=== PATIENT | male | born 1945 | race Caucasian/White ===

== ENCOUNTER 2017-09-19 14:06 | Inpatient (IN) | payer MEDICARE ==
[2017-09-19 14:38] LABS: Base Excess-Venous -2.6 mmol/L (0 (+/- 2.5)); CO2 Tension (PvCO2) 26.7 mmHg (41.0-51.0); Hemoglobin - Calc 9.9 g/dL (12.0-18.0); O2 Tension (PvO2) 39.8 mmHg (35.0-45.0); Potassium 3.8 mmol/L (3.4-4.7); T. Carbon Dioxide 20.8 mmol/L (1.0-85.0); pH (Venous) 7.482 (7.35-7.45); vO2 Saturation-calc 79.9 % (94-98)
--- NOTE | 2017-09-19 14:41 | CT ---
CT BRAIN WITHOUT CONTRAST: Date: 09/19/17 HISTORY: Altered mental status. Hypotension. COMPARISON: None. FINDINGS: There is moderate atrophy. Moderate deep white matter microvascular ischemic changes. There is extensive fluid-filling of the bilateral maxillary, ethmoid, and frontal sinuses. There is extensive osteitis of the paranasal sinuses. IMPRESSION: 1. No acute infarction or hemorrhage. 2. No midline shift or mass effect. 3. Extensive microvascular ischemic changes, as well as moderate atrophy. 4. Extensive paranasal sinusitis. POS: OFF
--- NOTE | 2017-09-19 14:44 | RAD ---
CHEST ONE VIEW: HISTORY: Altered mental status. Hypotension. Fall. COMPARISON: None. FINDINGS: There appear to be left perihilar and upper lobe air space opacities. Old right-sided rib fractures. No pneumothorax. The cardiac silhouette and mediastinal contours are similar. IMPRESSION: 1. Extensive perihilar opacities, worse on the left, as well as upper lobe opacities. This may refl ect edema, acute respiratory distress syndrome, or infection. Followup recommended. 2. Mild height loss of the upper lumbar vertebrae. POS: OFF
[2017-09-19 14:45] LABS: Hemoglobin 11.4 g/dL (14.0-18.0); Mean Corpuscular HGB CONC 32.9 g/dL (32.0-36.0); Mean Corpuscular Hemoglobin 34.8 pg (27.0-31.0); Red Blood Cell (RBC) Count 3.27 mill/uL (4.70-6.10); White Blood Cell (WBC) Count 3.8 thou/uL (4.8-10.8)
--- NOTE | 2017-09-19 14:45 | CT ---
CT CERVICAL SPINE WITH CORONAL AND SAGITTAL REFORMATIONS: Date: 09/19/17 HISTORY: Altered mental status. Level I trauma. Fall. FINDINGS: No fracture is seen. No degenerative changes are present. There is minimal retrolisthesis of C4 over C5. There is incomplete visualization of patchy consolidation in the left upper lung. Discussed over the telephone with ER physician, Dr. Haley, at 1440 hours. CODE CR. POS: DEEJAY
--- NOTE | 2017-09-19 14:46 | RAD ---
AP VIEW PELVIS: INDICATIONS: A 72-year-old male status post fall with possible hip dislocation. FINDINGS: There is a comminuted right hip intertrochanteric fracture with prominent varus malalignment. There is diffuse osteopenia. There is a nondisplaced right inferior pubic ramus fracture. There is a poss ible nondisplaced right pubic root fracture. There is diffuse osteopenia. There is an instrumented healed left hip intertrochanteric fracture. There are scattered vascular calcifications. Portions o f the proximal femur are excluded from the field of view. IMPRESSION: 1. Comminuted, angulated right intertrochanteric hip fracture. 2. Nondisplaced right pubic root and right inferior pubic ramus fracture. 3. Healed, instrumented left intertrochanteric hip fracture. POS: CRISTOBAL
[2017-09-19 14:50] LABS: ALT (SGPT) 151 U/L (8-55); AST (SGOT) 241 U/L (5-34); Albumin 2.5 g/dL (3.4-4.8); Alcohol Less than 10 mg/dL (Less than 10); Alkaline Phosphatase 146 U/L (40-150); Anion Gap 26 mmol/L (10-20); BUN (Urea Nitrogen) 99 mg/dL (8.4-25.7); Bilirubin, Total 5.1 mg/dL (0.2-1.2); CK (CPK) 154 U/L (30-200); Calc. Creatinine Clearance 0 mL/min (70-130); Calcium 8.5 mg/dL (7.8-10.44); Carbon Dioxide 18 mmol/L (23-31); Chloride 111 mmol/L (98-107); Estimated GFR-MDRD 23; Globulin 3.1 g/dL (2.4-3.5); Glucose 104 mg/dL (83-110); Magnesium 2.6 mg/dL (1.6-2.6); Potassium 4.1 mmol/L (3.5-5.1); Protein, Total 5.6 g/dL (5.8-8.1); Sodium 151 mmol/L (136-145)
[2017-09-19 14:54] LABS: CKMB 4.4 ng/mL (0-6.6); Troponin I Less than 0.010 ng/mL (< 0.028)
[2017-09-19] MEDS ORDERED: Piperacillin/Tazobactam 4.5 GM VIAL ONE (14:59)
[2017-09-19] MEDS ORDERED: Vancomycin HCl 2.5 GM, Admixture Fee 1 EACH in Sodium Chloride 0.9% 500 ML IVPB SCH (15:00)
[2017-09-19] MEDS ORDERED: Dextrose 5% in Water 1,000 ML IV PRN (15:00)
[2017-09-19] MEDS ORDERED: Dextrose 50% Abboject 50 ML SYRINGE SLOW IVP PRN (15:00)
[2017-09-19] MEDS ORDERED: Ondansetron HCl/PF 4 MG/2 ML Vial IVP PRN (15:00)
[2017-09-19] MEDS ORDERED: Morphine 4 MG/ML VIAL SLOW IVP PRN ×2 (15:00→17:23)
[2017-09-19 15:14] LABS: Mean Platelet Volume 9.8 fL (7.4-10.4); Platelet Count 82 thou/uL (130-400)
[2017-09-19 15:15] LABS: Anisocytosis SLIGHT = 6-15 cells (100X) (0-5/hpf); Band 28 % (5-11); Lymphocytes 4 % (21-51); MDiff Complete? YES; Metamyelocyte 1 % (0-0); Monocytes 3 % (0-10); Neutrophil 64 % (42-75); PLT Morphology Comment Appears Decreased
[2017-09-19 15:26] LABS: INR-International Normal Ratio 1.3; PTT 34.6 SEC (22.9-36.1); Prothrombin Time 16.6 SEC (12.0-14.7)
--- NOTE | 2017-09-19 15:29 | RAD ---
PORTABLE RIGHT KNEE TWO VIEWS: History: Right knee pain, trauma. FINDINGS/IMPRESSION: No acute fracture or dislocation is seen. Vascular calcifications are present. POS: DEEJAY
[2017-09-19 15:41] LABS: Bilirubin Large (Negative); Blood, Urine Negative (Negative); Clarity CLOUDY (Clear); Glucose, Urine (Dipstick) Negative (Negative); Leukocyte Small (Negative); Nitrite Positive (Negative); Protein, Urine (Dipstick) Trace mg/dL (Neg-Trace)
[2017-09-19 15:44] LABS: Bacteria/HPF None Seen HPF (None Seen); RBC/HPF 0-3 HPF (0-3)
[2017-09-19 15:52] LABS: Pathc Cast-AUWi Flag 8.86 (0-2.49)
[2017-09-19 16:00] LABS: Crystals/HPF None Seen HPF (Negative); Hyaline Casts/LPF 0-3 HYALINE CAST LPF (0-3 Hyaline); Manual Microscopic Reviewed? No Path Casts Seen; Renal Epithelial None Seen HPF (0-3); Transitional Epithelial 0-3 HPF (0-3)
[2017-09-19 16:19] LABS: Actual Bicarbonate (HCO3a) 21.5 mEq/L (22-26); Base Excess (BEa) -4.8 mEq/L (0 (+/-) 2.5); CO2 Tension 46.1 mmHg (35.0-45.0); Hemoglobin (Hb) 8.2 g/dL (14.0-18.0); O2 Tension (PaO2) 57.9 mmHg (80.0-100.0); pH, Arterial 7.29 (7.35-7.45)
[2017-09-19 16:20] LABS: ALV-art Gradient 597.475 (0-20); Analyzer IN Cardio ER; Calcium, Ionized 1.1 mmol/L (1.12-1.30); Puncture Site RRA
[2017-09-19] MEDS ORDERED: Succinylcholine Chloride 20 MG/ML 10 ml SYRINGE FS ONE (16:25)
[2017-09-19] MEDS ORDERED: fentaNYL Citrate/PF 2,000 MCG in Sodium Chloride 0.9% 60 ML IV SCH (16:30)
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
[2017-09-19] MEDS ORDERED: Norepinephrine 4 MG/4 ML VIAL ONE (16:46)
[2017-09-19] MEDS ORDERED: Norepinephrine 8 MG in Sodium Chloride 0.9% 250 ML 250 ML IVPB PRN (16:52)
[2017-09-19 17:00] LABS: Actual Bicarbonate (HCO3a) 22.3 mEq/L (22-26); CO2 Tension 61.4 mmHg (35.0-45.0); Hemoglobin (Hb) 8.5 g/dL (14.0-18.0); O2 Tension (PaO2) 90.8 mmHg (80.0-100.0); pH, Arterial 7.18 (7.35-7.45)
[2017-09-19 17:01] LABS: Analyzer IN Cardio ER; Puncture Site LRA
[2017-09-19] MEDS ORDERED: Ventilator Sedation Protocol 1 EACH FS ONE (17:22)
[2017-09-19] MEDS ORDERED: Fentanyl BOLUS 250 ML IVPB PRN (17:23)
[2017-09-19] MEDS ORDERED: Propofol 1,000 MG/100 ML VIAL IV PRN (17:23)
[2017-09-19] MEDS ORDERED: Propofol BOLUS 1,000 MG/100 ML VIAL IV PRN (17:23)
[2017-09-19] MEDS ORDERED: Lorazepam 2 MG/ML VIAL SLOW IVP PRN (17:23)
[2017-09-19 18:07] LABS: Lactic Acid 1.2 mmol/L (0.5-2.2)
--- NOTE | 2017-09-19 18:11 | RAD ---
CHEST ONE VIEW 09/19/17 HISTORY: Status post central line placement and intubation. COMPARISON: 09/19/17 at 2:19 p.m. FINDINGS: Interval placement of endotracheal tube proximal to the clavicles. Right sided central venous cathete r terminates in the expected region of the superior vena cava. Nasogastric tube is identified. Distal tip is in the left upper quadrant. Chronic changes and hyperinflation in the lung parenchyma are dem onstrated. No obvious consolidation or masses. No obvious pneumothorax. There appears to be a left pe rihilar opacity. Evaluation is incomplete. IMPRESSION: 1. Lines and tubes as above. 2. Left perihilar opacity incompletely evaluated. POS: PPP
--- NOTE | 2017-09-19 18:28 | RAD ---
TWO VIEWS RIGHT HIP 09/19/17 HISTORY: Trauma. Pain. COMPARISON: None. FINDINGS: There is a comminuted, angulated intertrochanteric fracture. Vascular calcifications are noted. IMPRESSION: Right intertrochanteric fracture. POS: PPP
--- NOTE | 2017-09-19 18:59 | RAD ---
FRONTAL AND LATERAL IMAGING RIGHT FEMUR 09/19/17 COMPARISON: None. HISTORY: Deformity, trauma, pain. FINDINGS: Extensive atherosclerotic calcification is seen in the medial aspect of the right thigh. There is an obliquely oriented displaced fracture involving the proximal right femur, better assessed on right hi p and pelvis radiographs. The lateral examination demonstrates good distal fracture fragment to demon strate a posterior displacement of approximately 1.3 cm in mild posterior angulation. No additional f racture identified. IMPRESSION: Obliquely oriented displaced right femoral neck fracture, better assessed on right hip radiographs. POS: DEEJAY
[2017-09-19] MEDS ORDERED: Calcium Chloride 1 GM/10 ML Abboject SYRINGE IVP SCH (19:45)
[2017-09-19] MEDS: Sodium Bicarbonate 150 MEQ, Admixture Fee 1 EACH in Dextrose 5% in Water 1,000 ML IV SCH (19:57)
[2017-09-19] MEDS ORDERED: Hydrocortisone Sod Succ/PF 100 mg/2 ml Vial IVP SCH (20:00)
[2017-09-19] MEDS: Oxazepam 10 MG CAP PO SCH (20:52)
[2017-09-19] MEDS: Piperacillin/Tazobactam 2.25 GM in Sodium Chloride 0.9% 100 ML IVPB SCH (20:52)
[2017-09-19] MEDS ORDERED: Sodium Bicarbonate 150 MEQ in Dextrose 5% in Water 1,000 ML IV SCH (21:30)
[2017-09-19] MEDS ORDERED: Sodium Chloride 0.9% 1,000 ML IV SCH (23:00)
[2017-09-20] MEDS: Norepinephrine 8 MG in Sodium Chloride 0.9% 250 ML 250 ML IVPB PRN ×2 (00:25→11:00)
[2017-09-20] MEDS: Piperacillin/Tazobactam 2.25 GM in Sodium Chloride 0.9% 100 ML IVPB SCH ×4 (02:38→21:08)
[2017-09-20] MEDS: Sodium Bicarbonate 150 MEQ, Admixture Fee 1 EACH in Dextrose 5% in Water 1,000 ML IV SCH (02:58)
[2017-09-20] MEDS ORDERED: Sodium Chloride 0.9% 1,000 ML IV SCH (04:45)
[2017-09-20 04:52] LABS: Anion Gap 16 mmol/L (10-20); BUN (Urea Nitrogen) 74 mg/dL (8.4-25.7); CK (CPK) 87 U/L (30-200); Calc. Creatinine Clearance 26 mL/min (70-130); Calcium 8.3 mg/dL (7.8-10.44); Carbon Dioxide 23 mmol/L (23-31); Chloride 115 mmol/L (98-107); Estimated GFR-MDRD 30; Glucose 157 mg/dL (83-110); Phosphorus 4.8 mg/dL (2.3-4.7); Potassium 3.5 mmol/L (3.5-5.1); Sodium 150 mmol/L (136-145)
[2017-09-20] MEDS ORDERED: Sodium Bicarbonate 150 MEQ in Dextrose 5% in Water 1,000 ML IV SCH (05:01)
[2017-09-20 05:08] LABS: Band 44 % (5-11); Dohle Bodies SLIGHT; Hemoglobin 7.4 g/dL (14.0-18.0); Lymphocytes 12 % (21-51); MDiff Complete? YES; Mean Corpuscular HGB CONC 31.7 g/dL (32.0-36.0); Mean Corpuscular Hemoglobin 33.6 pg (27.0-31.0); Mean Platelet Volume 9.1 fL (7.4-10.4); Metamyelocyte 3 % (0-0); Neutrophil 41 % (42-75); PLT Morphology Comment Appears Decreased; Platelet Count 54 thou/uL (130-400); RBC Distribution Width 15.9 % (11.5-14.5); Vacuoles SLIGHT; White Blood Cell (WBC) Count 7.2 thou/uL (4.8-10.8)
[2017-09-20] MEDS: Oxazepam 10 MG CAP PO SCH ×3 (05:17→21:09)
[2017-09-20] MEDS: Sodium Chloride 0.45% 1,000 ML IV SCH (05:17)
[2017-09-20 07:07] LABS: Actual Bicarbonate (HCO3a) 22.1 mEq/L (22-26); Base Excess (BEa) -1.6 mEq/L (0 (+/-) 2.5); CO2 Tension 32.4 mmHg (35.0-45.0); Hematocrit-ABG 19.2 % (42.0-52.0); Hemoglobin (Hb) 7.1 g/dL (14.0-18.0); O2 Tension (PaO2) 83.5 mmHg (80.0-100.0); pH, Arterial 7.45 (7.35-7.45)
[2017-09-20 07:08] LABS: Calcium, Ionized 1.1 mmol/L (1.12-1.30); Puncture Site L.R.
[2017-09-20] MEDS: Folic Acid 1 MG TAB PO SCH (08:25)
[2017-09-20] MEDS: Famotidine 20 MG TAB PO SCH (08:27)
[2017-09-20] MEDS: Famotidine/PF 20 mg/2ml Vial SLOW IVP SCH (08:28)
--- NOTE | 2017-09-20 09:23 | RAD ---
PORTABLE CHEST: HISTORY: Dyspnea. CCU followup. COMPARISON: 09/19/17. FINDINGS: ET tube and NG tube remain in place. Central line is unchanged. Probable left basilar atelectasis i n the retrocardiac region obscuring the left hemidiaphragm. Otherwise, the lungs show no confluent c onsolidation. No evidence of significant interval change. POS: H
--- NOTE | 2017-09-20 09:41 | ULT ---
RIGHT UPPER ULTRASOUND ABDOMEN: HISTORY: Elevated LFTs. FINDINGS: The liver demonstrates homogeneous echotexture without focal mass or intrahepatic ductal dilatation. There is fluid/edema in the wall of the gallbladder which appears thickened measuring 7 mm. There i s echogenic debris in the gallbladder. No shadowing gallstones are seen. The common duct measures 6 mm in diameter. The pancreas is not well visualized. The right kidney is unremarkable. No free fl uid is seen in the Morison's pouch. There is a small amount of free fluid adjacent to the right lobe of the liver. A right pleural effusion is present. The abdominal aorta demonstrates a 6 cm aneurys m. IMPRESSION: 1. A 6 mm abdominal aortic aneurysm. 2. Gallbladder sludge with fluid in the wall and wall thickening. The possibility of acute cholecys titis should be considered. POS: DEEJAY
[2017-09-20] MEDS ORDERED: D5 1/4 NS 1,000 ML IV SCH (10:45)
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
[2017-09-20] MEDS: D5 1/4 NS 1,000 ML IV SCH ×2 (12:41→21:07)
--- NOTE | 2017-09-20 15:01 | PQF ---
CLINICAL DOCUMENTATION IMPROVEMENT CLARIFICATION FORM: ICD-10 Updated PLEASE DO AN ADDENDUM TO THE PROGRESS NOTE WITH ANY DOCUMENTATION UPDATES OR ADDITIONS AND CARRY THROUGH TO DC SUMMARY. THANK YOU. DATE: 09/20/17 ATTN: DR. DEL REAL Please exercise your independent, professional judgment in responding to the clarification form. Clinical indicators are provided on the bottom of this form for your review Please check appropriate box(s): [ x ] Acute Respiratory Failure: [ x ] with Hypoxia[ ] with Hypercapnia [ ] Acute On Chronic Respiratory Failure: [ ] with Hypoxia [ ] with Hypercapnia [ ] Acute Respiratory Failure due to: (etiology) [ ] Acute Respiratory Insufficiency following (if applicable): [ ] trauma [ ] surgery [ ] Chronic Respiratory Failure only [ ] with Hypoxia [ ] with Hypercapnia [ ] Hypoxia [ ] Other diagnosis [ ] Unable to determine In addition, please specify: Present on Admission (POA): [x ] Yes [ ] No [ ] Unable to determine For continuity of documentation, please document condition throughout progress notes and discharge summary. Thank You. CLINICAL INDICATORS - SIGNS / SYMPTOMS / LABS BP 83/52, 66/40 BP 103 RR 36 RECTAL TEMP 91.5 ABG PH 7.29 ABG PCO2 61.4 ABG PO2 57.9 RISKS: SEPTIC SHOCK ELIANE RHABDOMYOLYSIS TREATMENT: VENTILATOR SUPPORT CRITICAL CARE MONITORING ABGS (This form is maintained as a part of the permanent medical record) [employer] Win[employer] View[employer] 2015 [employer]. All Rights Reserved [email or web address] Office: [phone] [facility]
--- NOTE | 2017-09-20 15:04 | PQF ---
CLINICAL DOCUMENTATION IMPROVEMENT CLARIFICATION FORM: ICD-10 Updated PLEASE DO AN ADDENDUM TO THE PROGRESS NOTE WITH ANY DOCUMENTATION UPDATES OR ADDITIONS AND CARRY THROUGH TO DC SUMMARY. THANK YOU. Date: 09/20/17 ATTN: DR. DEL REAL Please exercise your independent, professional judgment in responding to the clarification form. Clinical indicators are provided on the bottom of this form for your review Please check appropriate box(s): [ x] Protein Calorie Malnutrition: [ ] Mild [ x] Moderate [ ] Severe [ ] Other Malnutrition (please specify) __ [ ] Underweight without malnutrition [x ] Cachexia [ ] Other diagnosis [ ] Unable to determine In addition, please specify: Present on Admission (POA): [x ] Yes [ ] No [ ] Unable to determine CLINICAL INDICATORS - SIGNS / SYMPTOMS / LABS DIETARY NOTE 09/20: "KCAL, PROTEIN, AND FLUID NEEDS NOT MET" BMI 19 RISKS: CHRONIC ALCOHOLISM SEPSIS WITH SEPTIC SHOCK POOR WOUND HEALING TREATMENT: DIETARY CONSULT SPEECH THERAPY CONSULT TUBE FEEDS RECOMMENDED PER PIGMENT FURNACE TENDER Moderate Malnutrition (in acute illness) Energy Intake: <75% of estimated energy requirement for > 7 days Weight Loss: 1-2%/1 week; 5%/ 1 month; 7.5%/3 months Other: mild body fat loss; mild muscle mass loss; mild fluid accumulation; Severe Malnutrition (in acute illness) Energy Intake: < 50% of estimated energy requirement for > 5 days Weight Loss: >1-2%/1 week; >5%/1 month; >7.5%/3 months Other: moderate body fat loss; moderate muscle mass loss; moderate- severe fluid accumulation; measurably reduced printing equipment mechanic apprentice strength Moderate Malnutrition (in chronic illness) Energy Intake: <75% of estimated energy requirement for >1 month [employer] Winform ViewerWeight Loss: 5%/1 month; 7.5 %/3 months; 10%/6 months; 20%/1 year Other: mild body fat loss; mild muscle mass loss; mild fluid accumulation Severe Malnutrition (in chronic illness) Energy Intake: <75% of estimated energy requirement for >1 month Weight Loss: >5%/1 month; >7.5%/3 months; >10%/6 months; >20%/1 year Other: severe body fat loss; severe muscle mass loss; severe fluid accumulation ; measurably reduced printing equipment mechanic apprentice strength (This form is maintained as a part of the permanent medical record) 2014 [employer] All Rights Reserved [email or web address] Office: [phone] [facility]
[2017-09-20] MEDS: Hydrocortisone Sod Succ/PF 100 mg/2 ml Vial IVP SCH ×2 (17:19→23:08)
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
[2017-09-21] MEDS: Piperacillin/Tazobactam 2.25 GM in Sodium Chloride 0.9% 100 ML IVPB SCH ×4 (03:15→20:30)
[2017-09-21] MEDS: Hydrocortisone Sod Succ/PF 100 mg/2 ml Vial IVP SCH ×4 (04:33→22:18)
[2017-09-21 04:55] LABS: Anion Gap 11 mmol/L (10-20); BUN (Urea Nitrogen) 53 mg/dL (8.4-25.7); Calc. Creatinine Clearance 42 mL/min (70-130); Calcium 7.4 mg/dL (7.8-10.44); Carbon Dioxide 26 mmol/L (23-31); Chloride 111 mmol/L (98-107); Estimated GFR-MDRD 48; Glucose 130 mg/dL (83-110); Magnesium 1.7 mg/dL (1.6-2.6); Phosphorus 2.5 mg/dL (2.3-4.7); Potassium 2.6 mmol/L (3.5-5.1); Sodium 145 mmol/L (136-145)
[2017-09-21 05:13] LABS: Hemoglobin 7.6 g/dL (14.0-18.0); Mean Corpuscular HGB CONC 31.5 g/dL (32.0-36.0); Mean Corpuscular Hemoglobin 31.6 pg (27.0-31.0); Mean Platelet Volume 10.1 fL (7.4-10.4); Platelet Count 35 thou/uL (130-400); RBC Distribution Width 18.8 % (11.5-14.5); Red Blood Cell (RBC) Count 2.42 mill/uL (4.70-6.10); White Blood Cell (WBC) Count 9.7 thou/uL (4.8-10.8)
[2017-09-21 05:16] LABS: Band 49 % (5-11); Lymphocytes 3 % (21-51); MDiff Complete? YES; Metamyelocyte 1 % (0-0); Monocytes 1 % (0-10); Neutrophil 46 % (42-75); PLT Morphology Comment Appears Decreased
[2017-09-21 05:27] LABS: Vancomycin, Random 17.2 ug/mL (See Comment)
[2017-09-21] MEDS ORDERED: Magnesium 2 GM/NS 0.9% 100 ML 2 GM in Premix Bag 1 BAG IVPB SCH (05:30)
[2017-09-21] MEDS ORDERED: Magnesium Sulfate 3 GM in Sodium Chloride 0.9% 100 ML IVPB SCH (05:30)
[2017-09-21] MEDS ORDERED: Potassium Phosphate 30 MMOL in Sodium Chloride 0.9% 500 ML IVPB SCH (06:00)
[2017-09-21] MEDS: Oxazepam 10 MG CAP PO SCH ×3 (06:06→22:18)
[2017-09-21 07:19] LABS: Actual Bicarbonate (HCO3a) 23.4 mEq/L (22-26); Base Excess (BEa) 0.3 mEq/L (0 (+/-) 2.5); CO2 Tension 31.1 mmHg (35.0-45.0); Calcium, Ionized 1.1 mmol/L (1.12-1.30); Hematocrit-ABG 22.2 % (42.0-52.0); Hemoglobin (Hb) 7.8 g/dL (14.0-18.0); O2 Tension (PaO2) 103.9 mmHg (80.0-100.0); Puncture Site LRA; pH, Arterial 7.49 (7.35-7.45)
[2017-09-21 07:20] LABS: ALV-art Gradient 178.075 (0-20)
[2017-09-21] MEDS ORDERED: Vancomycin HCl 1 GM in Premix Bag 1 BAG IVPB SCH (08:00)
[2017-09-21] MEDS ORDERED: Potassium Chloride 40 MEQ in Premix Bag 1 BAG IVPB SCH (08:00)
[2017-09-21] MEDS: Folic Acid 1 MG TAB PO SCH (08:46)
[2017-09-21] MEDS: Famotidine 20 MG TAB PO SCH (08:46)
[2017-09-21] MEDS: Famotidine/PF 20 mg/2ml Vial SLOW IVP SCH (08:47)
[2017-09-21] MEDS: Sodium Chloride 0.45% 1,000 ML IV SCH (08:48)
[2017-09-21] MEDS: traMADol HCl 50 MG TAB PO SCH ×3 (09:41→20:30)
[2017-09-21] MEDS: Acetaminophen 500 MG TAB PO SCH ×3 (09:42→20:30)
--- NOTE | 2017-09-21 10:38 | RAD ---
RADIOGRAPH CHEST 1 VIEW: Date: 09/21/17 Time: 0814 HOURS HISTORY: 72-year-old male with fever. COMPARISON: 09/20/17 at 0545 hours. FINDINGS: Diffusely increased attenuation of the entire left lung, probably at least in part due to posteriorly layering pleural effusion. Dense consolidation of retrocardiac portion of left lower lobe. Small are a of increased attenuation, perhaps subsegmental atelectasis, at the right lower lung zone. Otherwise , the aeration of the rest of the right lung is relatively normal. Right IJ central line, NGT, and ET T remain. No major interval change overall. IMPRESSION: 1. No major interval change. 2. Left lower lobe consolidation. 3. Probable left pleural effusion. DARRYL [] POS: DEEJAY
--- NOTE | 2017-09-21 12:27 | PRG ---
DATE OF SERVICE: 09/21/2017 SUBJECTIVE: Mr. Ruiz is a 72-year-old man who was admitted on 09/19/2017 following an apparent fall where he sustained right hip fracture. The patient was found down, unknown duration. He arrived in septic shock. Aggressive resuscitation ensued since then. He had acute kidney injury on arrival. Jenny velarde is currently on full mechanical ventilatory support, sedated with fentanyl. Syed coma scale is E3 M6 V1t. The patient is tolerating tube feeds at goal. Urinary output is adequate. He was previously on norepinephrine at 20 mcg per minute that has progressively been weaned. In fact , no epinephrine was completely weaned off this morning. Blood pressure is holding up fine. OBJECTIVE: CURRENT VITAL SIGNS: Includes blood pressure 108/51, pulse 60, respiratory rate is 22, maximum tempe rature in the last 24 hours is 100 degrees Fahrenheit, oxygen saturation is 100% on FiO2 of 35%. HEENT: Reveals normocephalic and atraumatic. Pupils are equal, round, reactive to light bilaterally . The patient has no jugular venous distention noted. HEART: Reveals regular rate and rhythm, no murmurs or gallops auscultated. CHEST: Clear to auscultation bilaterally. CARDIOVASCULAR: Regular and unlabored. ABDOMEN: Soft, nontender, nondistended. Bowel sounds in all four quadrants appear normoactive. EXTREMITIES: Reveals 2+ radial and pedal pulses bilaterally. No ankle edema is present. NEUROLOGIC: Examination reveals no focal deficits present. LABORATORY DATA: Laboratory findings today includes CBC with 9,700 white blood cells, hemoglobin and hematocrit 7.6 and 24.2 respectively. Platelet count is 35,000. Differential counts as follows, 46 % segmented neutrophils, 49 bands, 3 lymphocytes, and 1 monocyte. Arterial blood gas pH 7.49, pCO2 i s 31, pO2 103, bicarbonate is 22, base excess is 0.3, ionized calcium 1.1. Metabolic profile; sodium is 145, potassium is 2.6, chloride is 111, bicarbonate is 26, BUN and creatinine 53 and 1.46 respect ively. This is an improvement over 74 and 2.16 respectively from yesterday. Glucose today 130, magn esium 1.7, phosphorus 2.5. IMPRESSION: 1. Status post fall. 2. Acute respiratory failure, improving. 3. Acute septic shock, improving. Blood culture obtained on 09/19/2017 is 1 out of 2 positive for S treptococcus pneumonia. The patient is currently on antibiotic therapy. 4. Acute hypokalemia. 5. Acute hypomagnesemia. 6. Acute hypophosphatemia. 7. Closed right hip fracture. PLAN: 1. We will continue broad spectrum antibiotic therapy; however, there is no further indication for v ancomycin, which will be discontinued today. 2. We will initiate ventilatory wean as tolerated. 3. Correct abnormal electrolytes. 4. The patient is certainly hemodynamically stable enough to proceed with operative intervention to the right hip fracture. Will discuss with Orthopedic Surgery. Total critical care time is 45 minutes.
[2017-09-21 12:56] LABS: ALT (SGPT) 69 U/L (8-55); AST (SGOT) 96 U/L (5-34); Albumin 2.2 g/dL (3.4-4.8); Alkaline Phosphatase 74 U/L (40-150); Bilirubin, Direct 2.4 mg/dL (0.1-0.3); Protein, Total 4.3 g/dL (5.8-8.1)
[2017-09-21 14:24] LABS: Folate,Hemolysate 557.3 ng/mL (Not Estab.); Hematocrit 20.1 % (37.5-51.0); RBC Folate Test Component 2773 ng/mL (>498)
[2017-09-21] MEDS ORDERED: CEFAZOLIN/Water 2 GM/20 ML SYRINGE SLOW IVP SCH (16:15)
[2017-09-21] MEDS ORDERED: Calcium Chloride 1 GM/10 ML Abboject SYRINGE IVP SCH (17:00)
[2017-09-21] MEDS: Norepinephrine 8 MG in Sodium Chloride 0.9% 250 ML 250 ML IVPB PRN (21:36)
[2017-09-21] MEDS: Dextrose 5 %-0.45 % NaCl 1,000 ML IV SCH (23:40)
[2017-09-22] MEDS ORDERED: Acetaminophen 1,000 MG in Premix Bag 1 BAG IVPB SCH (00:30)
[2017-09-22] MEDS: Acetaminophen 500 MG TAB PO SCH ×4 (02:08→21:14)
[2017-09-22] MEDS: traMADol HCl 50 MG TAB PO SCH ×4 (02:08→22:22)
[2017-09-22] MEDS: Piperacillin/Tazobactam 2.25 GM in Sodium Chloride 0.9% 100 ML IVPB SCH ×2 (02:09→08:37)
[2017-09-22] MEDS: Hydrocortisone Sod Succ/PF 100 mg/2 ml Vial IVP SCH ×4 (03:52→22:30)
[2017-09-22] MEDS: Oxazepam 10 MG CAP PO SCH ×4 (05:10→21:14)
[2017-09-22 06:03] LABS: Anion Gap 10 mmol/L (10-20); BUN (Urea Nitrogen) 50 mg/dL (8.4-25.7); Calc. Creatinine Clearance 48 mL/min (70-130); Calcium 7.9 mg/dL (7.8-10.44); Carbon Dioxide 27 mmol/L (23-31); Chloride 110 mmol/L (98-107); Estimated GFR-MDRD 52; Glucose 176 mg/dL (83-110); Magnesium 2.1 mg/dL (1.6-2.6); Phosphorus 4.6 mg/dL (2.3-4.7); Potassium 2.9 mmol/L (3.5-5.1); Sodium 144 mmol/L (136-145)
[2017-09-22 06:09] LABS: Hypochromia SLIGHT = 6-15 cells (100X) (0-5/hpf); Lymphocytes 8 % (21-51); MDiff Complete? YES; Macrocytosis SLIGHT = 6-15 cells (100X) (0-5/hpf); Mean Corpuscular HGB CONC 32.3 g/dL (32.0-36.0); Mean Corpuscular Hemoglobin 31.6 pg (27.0-31.0); Mean Corpuscular Volume 97.6 fl (80.0-94.0); Mean Platelet Volume 10.7 fL (7.4-10.4); Monocytes 2 % (0-10); Neutrophil 90 % (42-75); PLT Morphology Comment Appears Decreased; Platelet Count 31 thou/uL (130-400); Red Blood Cell (RBC) Count 2.84 mill/uL (4.70-6.10); White Blood Cell (WBC) Count 13.1 thou/uL (4.8-10.8)
[2017-09-22] MEDS ORDERED: Potassium Chloride 40 MEQ in Premix Bag 1 BAG IVPB SCH (06:30)
[2017-09-22 07:15] LABS: Actual Bicarbonate (HCO3a) 23.9 mEq/L (22-26); CO2 Tension 35.3 mmHg (35.0-45.0); Hematocrit-ABG 21.1 % (42.0-52.0); Hemoglobin (Hb) 7.2 g/dL (14.0-18.0); O2 Tension (PaO2) 107.7 mmHg (80.0-100.0); pH, Arterial 7.45 (7.35-7.45)
[2017-09-22 07:16] LABS: ALV-art Gradient 133.375 (0-20); Calcium, Ionized 1.1 mmol/L (1.12-1.30); Puncture Site LRA
[2017-09-22] MEDS ORDERED: Fentanyl 100 MCG/2 ML VIAL ONE (08:00)
[2017-09-22] MEDS: Dextrose 5 %-0.45 % NaCl 1,000 ML IV SCH ×2 (08:29→16:20)
[2017-09-22] MEDS ORDERED: Midazolam HCl 2 mg/2 ml Vial ONE (08:29)
[2017-09-22] MEDS ORDERED: Midazolam HCl 2 mg/2 ml Vial SLOW IVP SCH (08:45)
[2017-09-22] MEDS: Famotidine 20 MG TAB PO SCH (09:52)
[2017-09-22] MEDS: Folic Acid 1 MG TAB PO SCH (09:53)
--- NOTE | 2017-09-22 11:24 | OP ---
DATE OF SURGERY: 09/22/2017 PREOPERATIVE DIAGNOSIS: Left intertrochanteric femur fracture. POSTOPERATIVE DIAGNOSIS: Left intertrochanteric femur fracture. SURGICAL PROCEDURE: TFN to left femoral intertrochanteric femur fracture. ANESTHESIA: General. SURGEON: Cordell Solomon M.D. COMMUTER PILOT: DYLAN Erwin IMPLANTS: Synthes 11 x 400 mm TFN with 100 mm hip screw and a single distal cross lock screw. COMPLICATIONS: None. DRAINS: None. SPECIMEN: None. OUTCOME: Satisfactory. INDICATIONS: The patient is a 72-year-old gentleman who had an unwitnessed ground level fall with a prolonged period of time at home on the floor following the fall sustaining a left intertrochanteric femur fracture. The patient was found to be very ill and very dehydrated and required intubation and resuscitation in the Intensive Care Unit. The patient is now more hemodynamically stable and felt t o be stable for surgical treatment of his unstable left intertrochanteric femur fracture. Informed c onsent has been obtained. I spoke with the patient when he was in the emergency room initially about fixing the femur and he agreed at that time and today on a ventilator he is answering questions with head nods and was able to sign a surgical permit and felt to be competent for this decision based on both my discussions in the emergency room and more recently. The patient is status post right TFN n ail performed by myself approximately a year and a half ago. PROCEDURE: The patient was brought to the operating room and a timeout performed followed by inducti on of general anesthesia. He was next positioned on the fracture table with the injured leg held in longitudinal traction and slight internal rotation. Next, a sterile prep and drape was performed on the left lateral thigh. A small skin incision was made proximal to greater trochanter. After skin w as sharply incised, dissection was carried down bluntly with Metzenbaum scissors. The tip of the gre ater trochanter could be palpated and a threaded guidewire was passed from the medial tip of the grea ter trochanter into the proximal femoral canal. An opening reamer was then passed over this threaded guidewire. Next, a ball-tipped guidewire was passed down the femur and then an 11 mm reamer passed over the ball-tipped guidewire with no cortical chatter. At this point, we decided to proceed with a n 11 x 400 mm nail given that this is what he had on his contralateral side. The 11 x 400 mm nail w as then passed with just hand passage down the canal. Once appropriately positioned in the canal a s econd small incision was made distal to the first and the hip screw guide was passed through the jig and into this second wound up against the lateral cortex of the femur. Next, a threaded guidewire wa s passed under C-arm guidance approaching the near center-center position. Measurement off of this g uidewire showed a 100 mm hip screw to be of appropriate length. The reamer was then passed over the guidewire. Next, a 100 mm hip screw was inserted. Using the compression jig the intertrochanteric f racture was compressed and then the locking mechanism was engaged and then backed off a 1/2 turn to a llow for sliding of the hip screw. At this point, the jig was removed from the femur and then a thir d small incision was made distal. Using C-arm guidance, a single distal cross lock screw was inserte d in standard fashion. At the completion of this, AP, lateral C-arm images of the distal cross lock as well as proximal fracture were obtained. The three incisions were irrigated with normal saline. The two small stab wounds closed with kunal. The proximal incision closed in layers with 0 Vicryl deep, followed by 2-0 Vicryl and kunal. Xeroform gauze and tape dressing was applied to the thigh and then the patient was transferred back to the ICU in stable condition. He tolerated the procedure well.
[2017-09-22 12:05] LABS: Hemoglobin 9.2 g/dL (14.0-18.0); Mean Corpuscular HGB CONC 32.5 g/dL (32.0-36.0); Mean Corpuscular Hemoglobin 30.9 pg (27.0-31.0); Mean Corpuscular Volume 94.9 fl (80.0-94.0); Mean Platelet Volume 8.2 fL (7.4-10.4); Platelet Count 66 thou/uL (130-400); RBC Distribution Width 19.5 % (11.5-14.5)
--- NOTE | 2017-09-22 12:09 | RAD ---
RIGHT HIP: Date: 09/22/17 HISTORY: Four fluoroscopic spot images from open reduction and internal fixation of right hip. COMPARISON: Right hip radiographs dated 09/19/17. FLUORO TIME: Fluoroscopic time was 72.8 seconds with total exposure of 8.09 mGy*cm^2. FINDINGS: Since the comparison examination, there has been interval placement of a long cephalomedullary device transfixing the patient's comminuted right intertrochanteric hip fracture. Fracture alignment is vandana r anatomic. Instrumentation projects in the suspected position. IMPRESSION: Interval open reduction and internal fixation of the patient's right hip intertrochanteric fracture. POS: [facility]
[2017-09-22 12:15] LABS: Band 28 % (5-11); Lymphocytes 3 % (21-51); MDiff Complete? YES; Metamyelocyte 1 % (0-0); Monocytes 1 % (0-10); Neutrophil 67 % (42-75); PLT Morphology Comment Appears Decreased; Polychromasia SLIGHT = 2-3 cells (100X) (0-2/hpf)
--- NOTE | 2017-09-22 12:53 | PRG ---
DATE OF SERVICE: 09/22/2017 SUBJECTIVE: Mr. Lanier is a 72-year-old man who is post-admission day #3, status post an apparent amanda und level fall. The patient was admitted in acute septic shock. He also had a closed right hip fracture which is yet to be repaired due to hemodynamic instability since his admission. Currently, the patient is sedate d on full mechanical ventilator support. Light on sedation. He reports adequate pain control. He i s currently on no vasopressor or inotropic support. Urinary output has improved and currently at abdias roximately 80 mL per hour. PHYSICAL EXAMINATION: VITAL SIGNS: Currently includes blood pressure is 114/70, pulse is 58, respiratory rate is 12, maxim um temperature in the last 24 hours is 98.4 degrees Fahrenheit, oxygen saturation 100% on FiO2 of 30% . HEENT: Reveals pupils equal, round, reactive to light and accommodation. NECK: He has no jugular venous distention noted. HEART: Reveals regular rate and rhythm, no murmurs or gallops auscultated. LUNGS: Clear to auscultation bilaterally. Breathing regular and unlabored. ABDOMEN: Soft, nontender, nondistended. EXTREMITIES: Reveals 2+ radial and pedal pulses bilaterally. No ankle edema is present. NEUROLOGIC: Reveals no focal deficits present. LABORATORY DATA: Today includes a CBC with 12,000 white blood cells, hemoglobin and hematocrit stabl e at 9.2 and 28.4 respectively. Platelet count is improved at 66,000. The differential counts is as follows, 67% segmented neutrophils, 28% bands, 3 lymphocytes, and 1 monocyte. Metabolic profile: S odium 144, potassium is 2.9, chloride is 110, bicarbonate 27, BUN 50, creatinine is 1.35, glucose 176 , magnesium 2.1, and phosphorus is 4.6. IMPRESSION: 1. Post-admission day #3 status post apparent ground level fall. 2. Resolved acute septic shock. 3. Acute respiratory failure. 4. Acute kidney injury, improving. 5. Acute hypokalemia. 6. Stable acute blood loss anemia. PLAN: 1. Continue with full mechanical ventilator support until a surgical intervention has been accomplis hed and the patient remains hemodynamically stable. 2. Correct abnormal electrolytes. 3. Tube feeds have been on hold currently pending operative intervention today. 4. We will resume physical and occupational therapy once patient has undergone surgical repair to th e right hip fracture. The above findings and plan discussed with the patient. He indicated apparent understanding of infor mation given. Total critical care time is 50 minutes.
[2017-09-22] MEDS: Piperacillin/Tazobactam 3.375 GM in Sodium Chloride 0.9% 100 ML IVPB SCH ×2 (15:15→21:14)
[2017-09-22] MEDS ORDERED: traMADol HCl 50 MG TAB PO PRN (17:37)
[2017-09-22] MEDS ORDERED: Morphine 4 MG/ML VIAL SLOW IVP PRN (17:37)
[2017-09-22] MEDS ORDERED: PHENYLEPHRINE-NS 100 MCG/ML 10 ML SYRINGE ONE (20:02)
[2017-09-22] MEDS ORDERED: ePHEDrine/0.9% NaCl/PF SYRINGE 50 mg/10 ml ONE (20:02)
[2017-09-22] MEDS ORDERED: PROPOFOL 200 MG/20 ML VIAL ONE (20:02)
[2017-09-22] MEDS ORDERED: Glycopyrrolate 0.2 MG/ML 5 ML SYRINGE ONE (20:02)
[2017-09-23] MEDS: Dextrose 5 %-0.45 % NaCl 1,000 ML IV SCH ×3 (00:57→08:35)
[2017-09-23] MEDS: Oxazepam 10 MG CAP PO SCH ×4 (03:00→19:47)
[2017-09-23] MEDS: Acetaminophen 500 MG TAB PO SCH ×4 (03:00→19:47)
[2017-09-23] MEDS: Hydrocortisone Sod Succ/PF 100 mg/2 ml Vial IVP SCH ×4 (04:04→22:04)
[2017-09-23] MEDS: Piperacillin/Tazobactam 3.375 GM in Sodium Chloride 0.9% 100 ML IVPB SCH ×4 (04:05→20:53)
[2017-09-23] MEDS: traMADol HCl 50 MG TAB PO SCH ×5 (06:44→23:43)
[2017-09-23 07:51] LABS: Hemoglobin 9.6 g/dL (14.0-18.0); Mean Corpuscular Volume 96.7 fl (80.0-94.0); Platelet Count 65 thou/uL (130-400); RBC Distribution Width 19.6 % (11.5-14.5); White Blood Cell (WBC) Count 15.4 thou/uL (4.8-10.8)
[2017-09-23 08:13] LABS: Band 5 % (5-11); Lymphocytes 4 % (21-51); MDiff Complete? YES; Metamyelocyte 2 % (0-0); Monocytes 2 % (0-10); Neutrophil 86 % (42-75); PLT Morphology Comment Appears Decreased; Reactive Lymphocytes 1 % (0-10)
[2017-09-23 08:15] LABS: Anion Gap 15 mmol/L (10-20); BUN (Urea Nitrogen) 32 mg/dL (8.4-25.7); Calc. Creatinine Clearance 65 mL/min (70-130); Calcium 7.6 mg/dL (7.8-10.44); Carbon Dioxide 22 mmol/L (23-31); Chloride 113 mmol/L (98-107); Estimated GFR-MDRD 74; Glucose 139 mg/dL (83-110); Magnesium 1.7 mg/dL (1.6-2.6); Phosphorus 2.7 mg/dL (2.3-4.7); Potassium 3.2 mmol/L (3.5-5.1); Sodium 147 mmol/L (136-145)
[2017-09-23] MEDS: Famotidine 20 MG TAB PO SCH (08:36)
[2017-09-23] MEDS: Folic Acid 1 MG TAB PO SCH (08:36)
[2017-09-23] MEDS ORDERED: Potassium Chloride 40 MEQ in Premix Bag 1 BAG IVPB SCH (09:15)
[2017-09-23] MEDS: Potassium Chloride 20 MEQ in Premix Bag 1 BAG IVPB SCH ×2 (11:11→11:12)
--- NOTE | 2017-09-23 14:09 | PRG ---
DATE OF SERVICE: 09/23/2017 ATTENDING PHYSICIAN: Dr. Junior Wagoner. SUBJECTIVE: Mr. Ruiz is a 72-year-old man, who is hospital day #4, status post ground-level fall, metcalf staining a right hip fracture. He initially was admitted in septic shock, requiring mechanical venti lation. He had delayed hip fracture repair due to hemodynamic instability since admission. He was s table to be taken to the OR yesterday. He underwent fixation of his right hip fracture with Dr. Schuyler randolph. He was weaned from the ventilator yesterday and subsequently extubated last p.m. He reports a dequate pain control this a.m. He does not identify any areas of pain. OBJECTIVE: VITAL SIGNS: Temperature 98.7, pulse 99, blood pressure 111/71, O2 sat 95% on 2 liters nasal cannula . CONSTITUTIONAL: Elderly male lying in bed, in no acute distress. HEENT: Atraumatic, normocephalic. PULMONARY: Bilateral breath sounds clear, and no respiratory distress. CARDIOVASCULAR: Regular rate and rhythm. Heart sounds normal. ABDOMEN: Soft, nontender, nondistended. EXTREMITIES: Moves all extremities well, a 2+ pulses in all extremities, cap refill brisk in all ext remities. NEUROLOGIC: GCS 14, E4 V4 M6. LABORATORY DATA: Hematology: WBC 15.4, RBC 3.00, hemoglobin 9.6, hematocrit 29.0, platelets 65. Ch emistry: Sodium 147, potassium 3.2, chloride 113, carbon dioxide 22, BUN 32, creatinine 1.00. ASSESSMENT: 1. Status post ground-level fall. 2. Postoperative day #1, status post repair of right hip fracture. 3. Resolved acute septic shock. 4. Resolved acute respiratory failure. 5. Acute kidney injury, improving. 6. Hypokalemia. PLAN: 1. Continue to monitor and replace electrolytes as indicated. 2. Start on clear liquid diet. 3. Continue physical and occupational therapy. 4. Discontinue IV fluids. 5. When the patient tolerating diet, transition to oral pain medication. Patient was reviewed with Dr. Wagoner, who agrees with plan.
[2017-09-23] MEDS ORDERED: Furosemide 20 MG/2 ML VIAL SLOW IVP SCH (17:15)
--- NOTE | 2017-09-23 19:53 | RAD ---
UPRIGHT PORTABLE CHEST ONE VIEW: 09/23/17 HISTORY: 72-year-old male with history of fluid overload, line placement. There is a right jugulovenous catheter, the tip of which extends down into the distal superior vena c xavier. The previously noted NG tube and endotracheal tubes have been removed. There are fairly extensiv e bilateral alveolar nodular and interstitial parenchymal changes bilaterally throughout both lungs i n a patchy distribution which certainly could be consistent with somewhat asymmetric bilateral pulmon jasmin edema. There are small pleural effusions, slightly larger on the left side. No significant cardio megaly. IMPRESSION: Extensive new bilateral alveolar nodular and interstitial parenchymal changes throughout both lungs w ith bilateral pleural effusions. Findings certainly could be consistent with somewhat asymmetric pulm onary edema and fluid overload. Bilateral atypical pneumonia could have a similar appearance radiogra phically. Continued short term followup. Right jugulovenous catheter without pneumothorax or pleural effusion. POS: [facility]
[2017-09-23] MEDS ORDERED: Furosemide 40 MG/4 ML VIAL ONE (20:07)
[2017-09-23] MEDS ORDERED: Furosemide 40 MG/4 ML VIAL SLOW IVP SCH (20:15)
[2017-09-24] MEDS: Acetaminophen 500 MG TAB PO SCH ×4 (02:59→18:28)
[2017-09-24] MEDS: Oxazepam 10 MG CAP PO SCH ×4 (02:59→20:31)
[2017-09-24] MEDS: Piperacillin/Tazobactam 3.375 GM in Sodium Chloride 0.9% 100 ML IVPB SCH ×4 (02:59→20:31)
[2017-09-24] MEDS: Hydrocortisone Sod Succ/PF 100 mg/2 ml Vial IVP SCH ×5 (03:31→22:25)
[2017-09-24] MEDS: traMADol HCl 50 MG TAB PO SCH ×3 (05:43→18:29)
[2017-09-24] MEDS: Folic Acid 1 MG TAB PO SCH (08:37)
[2017-09-24] MEDS: Famotidine 20 MG TAB PO SCH (08:37)
[2017-09-24 12:06] LABS: Anion Gap 16 mmol/L (10-20); BUN (Urea Nitrogen) 28 mg/dL (8.4-25.7); Calc. Creatinine Clearance 62 mL/min (70-130); Calcium 7.7 mg/dL (7.8-10.44); Carbon Dioxide 21 mmol/L (23-31); Chloride 116 mmol/L (98-107); Estimated GFR-MDRD 70; Glucose 108 mg/dL (83-110); Magnesium 1.5 mg/dL (1.6-2.6); Sodium 150 mmol/L (136-145)
[2017-09-24 12:17] LABS: Potassium 2.7 mmol/L (3.5-5.1)
[2017-09-24 12:24] LABS: Band 7 % (5-11); Hemoglobin 11.2 g/dL (14.0-18.0); Lymphocytes 2 % (21-51); MDiff Complete? YES; Macrocytosis SLIGHT = 6-15 cells (100X) (0-5/hpf); Mean Corpuscular HGB CONC 32.9 g/dL (32.0-36.0); Mean Corpuscular Hemoglobin 31.7 pg (27.0-31.0); Mean Corpuscular Volume 96.4 fl (80.0-94.0); Mean Platelet Volume 10.4 fL (7.4-10.4); Neutrophil 91 % (42-75); PLT Morphology Comment Appears Decreased; Platelet Count 55 thou/uL (130-400); Polychromasia SLIGHT = 2-3 cells (100X) (0-2/hpf); RBC Distribution Width 19.3 % (11.5-14.5); Red Blood Cell (RBC) Count 3.55 mill/uL (4.70-6.10)
[2017-09-24] MEDS ORDERED: Potassium Chloride 20 MEQ TAB PO SCH (13:15)
[2017-09-24] MEDS ORDERED: ADMIXTURE FEE IV SCH (14:15)
[2017-09-24] MEDS ORDERED: POTASSIUM CHLORIDE IV SCH (14:15)
[2017-09-24] MEDS ORDERED: Furosemide 40 MG/4 ML VIAL SLOW IVP SCH (14:15)
[2017-09-24] MEDS ORDERED: [UNRECOGNIZED DRUG - OTHER] IV SCH (14:15)
[2017-09-24] MEDS ORDERED: MAGNESIUM SULFATE IV SCH (14:15)
--- NOTE | 2017-09-24 19:08 | PRG ---
DATE OF SERVICE: 09/24/2017 ATTENDING PHYSICIAN: Junior Wagoner DO. SUBJECTIVE: Mr. Ruiz is a 72-year-old man who is hospital day #5, status post ground level fall, mile taining a right hip fracture. He initially was admitted in septic shock, requiring mechanical ventil ation. He had delayed hip fracture repair due to hemodynamic instability. He was taken to the OR 2 days ago where he underwent fixation of his right hip with Dr. Solomon. He was then weaned from the ventilator and subsequently extubated. He began having increased oxygen requirements yesterday. est x-ray showed fluid volume overload. He was given Lasix for diuresis. He reports adequate pain c ontrol. OBJECTIVE: VITAL SIGNS: Temperature 98.1, pulse 109, respirations 20, O2 sat 96% on 40% Ventimask. Blood press ure 114/71. GENERAL: Elderly male lying in bed, requiring Ventimask for adequate SpO2. No respiratory distress. HEENT: Atraumatic, normocephalic. PULMONARY: Bilateral breath sounds clear. No respiratory distress. CARDIOVASCULAR: Regular rate and rhythm. Heart sounds normal. ABDOMEN: Soft, nontender, nondistended. EXTREMITIES: Moves all extremities well, 2+ pulses to all extremities. Cap refill brisk. NEUROLOGIC: GCS 14, E4 V4 M6. LABORATORY DATA: Hematology: WBC 14.0, RBC 3.55, hemoglobin 11.2, hematocrit 34.2, platelets 55. C hemistry: Sodium 150, potassium 2.7, chloride 116, carbon dioxide 21, BUN 28, creatinine 1.05. ASSESSMENT: 1. Status post ground level fall. 2. Postoperative day 2, status post repair of right hip fracture. 3. Resolved acute septic shock. 4. Hypokalemia. 5. Congestive heart failure, requiring diuresis. 6. Acute kidney injury. PLAN: 1. Continue to monitor and correct electrolytes as indicated. 2. Continue clear liquid diet. 3. Continue physical and occupational therapy. 4. We downgraded to [facility] status. 5. If the patient requires more oxygen, may consider placing on BiPAP. Patient was reviewed with Dr. Wagoner, who agrees with plan.
[2017-09-24 21:09] LABS: Magnesium 2.4 mg/dL (1.6-2.6)
[2017-09-24 21:15] LABS: Potassium 2.8 mmol/L (3.5-5.1)
[2017-09-24] MEDS ORDERED: Potassium Chloride 40 MEQ in Sodium Chloride 0.9% 250 ML 250 ML IVPB SCH (22:00)
[2017-09-25] MEDS: traMADol HCl 50 MG TAB PO SCH ×4 (01:24→18:05)
[2017-09-25] MEDS: Oxazepam 10 MG CAP PO SCH ×4 (02:45→21:00)
[2017-09-25] MEDS: Acetaminophen 500 MG TAB PO SCH ×4 (02:45→21:00)
[2017-09-25] MEDS: Piperacillin/Tazobactam 3.375 GM in Sodium Chloride 0.9% 100 ML IVPB SCH ×4 (03:15→21:00)
[2017-09-25] MEDS: Hydrocortisone Sod Succ/PF 100 mg/2 ml Vial IVP SCH (04:55)
[2017-09-25 07:52] LABS: Hemoglobin 11.4 g/dL (14.0-18.0); Mean Corpuscular Hemoglobin 30.4 pg (27.0-31.0); Mean Corpuscular Volume 98.2 fl (80.0-94.0); Platelet Count 74 thou/uL (130-400); RBC Distribution Width 19.5 % (11.5-14.5); Red Blood Cell (RBC) Count 3.76 mill/uL (4.70-6.10); White Blood Cell (WBC) Count 11.1 thou/uL (4.8-10.8)
[2017-09-25 08:05] LABS: Anion Gap 13 mmol/L (10-20); BUN (Urea Nitrogen) 24 mg/dL (8.4-25.7); Calc. Creatinine Clearance 65 mL/min (70-130); Calcium 7.7 mg/dL (7.8-10.44); Carbon Dioxide 22 mmol/L (23-31); Chloride 120 mmol/L (98-107); Estimated GFR-MDRD 73; Glucose 85 mg/dL (83-110); Magnesium 2.1 mg/dL (1.6-2.6); Phosphorus 3.3 mg/dL (2.3-4.7); Potassium 3.3 mmol/L (3.5-5.1); Sodium 152 mmol/L (136-145)
[2017-09-25] MEDS ORDERED: Potassium Chloride 40 MEQ in Premix Bag 1 BAG IVPB SCH (08:15)
[2017-09-25 08:20] LABS: Band 9 % (5-11); Eosinophils 1 % (0-10); Lymphocytes 8 % (21-51); MDiff Complete? YES; Monocytes 3 % (0-10); Myelocyte 1 % (0-0); Neutrophil 78 % (42-75); PLT Morphology Comment Appears Decreased; Polychromasia SLIGHT = 2-3 cells (100X) (0-2/hpf); Target Cells SLIGHT = 2-5 cells (100X) (0-1/hpf)
[2017-09-25] MEDS ORDERED: Spironolactone 25 MG TAB PO SCH (10:30)
[2017-09-25] MEDS: Enoxaparin Sodium 30 MG/0.3 ML SYRINGE SC SCH (10:38)
[2017-09-25] MEDS: Famotidine 20 MG TAB PO SCH (10:39)
[2017-09-25] MEDS: Potassium Chloride 20 MEQ in Premix Bag 1 BAG IVPB SCH ×2 (10:39→13:02)
[2017-09-25] MEDS: Tamsulosin HCl 0.4 MG CAP PO SCH (10:39)
[2017-09-25] MEDS: Folic Acid 1 MG TAB PO SCH (10:39)
[2017-09-25] MEDS: Spironolactone 25 MG TAB PO SCH (10:45)
--- NOTE | 2017-09-25 11:54 | RAD ---
PORTABLE AP ABDOMINAL RADIOGRAPH: Date: 09-25-17 History: Feeding tube placement. FINDINGS: A Dobbhoff feeding tube is noted in place with the overlying the proximal body of the stomach. Interstitial alveolar opacities are seen in the visualized lung bases, better seen on prior chest rad iograph. In addition, there are increased pleural and parenchymal changes at the left lung base. There is curvilinear calcifications seen lateral to the lumbar spine. I am unsure rather this is rela brandon to tortuous abdominal aorta with calcifications or rather this is related to abdominal aortic ane urysm. This cannot be further evaluated on this exam. Visualized upper abdomen demonstrates a [facility]. Remote lower right sided rib fractures are present. IMPRESSION: 1. Curvilinear calcifications related to vascular calcifications in the abdominal aorta. Prior ultra sound examination did demonstrate an abdominal aortic aneurysm measuring 6 cm by report. 2. Increased interstitial and alveolar opacities at the visualized lung bases with pleural and parenc hymal changes at the left lung base. This is better evaluated on chest radiograph. 3. Dobbhoff feeding tube with tip overlying the proximal stomach. POS: [facility]
--- NOTE | 2017-09-25 12:39 | EKG ---
Test Reason : Blood Pressure : / mmHG Vent. Rate : 083 BPM Atrial Rate : 083 BPM P-R Int : 170 ms QRS Dur : 138 ms QT Int : 448 ms P-R-T Axes : 046 -65 062 degrees QTc Int : 526 ms Normal sinus rhythm Right bundle branch block Left anterior fascicular block Bifascicular block Nonspecific ST-T changes Abnormal ECG When compared with ECG of 19-SEP-2017 14:14, (Unconfirmed) Premature ventricular complexes are no longer Present Nonspecific T wave abnormality now evident in Inferior leads Nonspecific T wave abnormality, worse in Lateral leads Confirmed by DR. Teresa LI ([id number]) on 09/25/2017 12:38:46 PM Referred By: GT Confirmed By:DR. Teresa LI
--- NOTE | 2017-09-25 19:29 | PRG ---
DATE OF SERVICE: 09/25/2017 SUBJECTIVE: Mr. Ruiz is a 72-year-old man, who was admitted after being found down, unknow n duration. The patient sustained a right hip fracture from an apparent fall. Workup included septi c shock for which the patient has successfully been treated. The patient is postoperative day #3 sta tus post intertrochanteric femoral fracture. The patient is awake and alert today. He is requiring oxygen supplementation as he has intermittent episodes of hypoxia. The patient denies any chest pain , dyspnea or syncope. He is a chronic tobacco abuser. PHYSICAL EXAMINATION: VITAL SIGNS: This morning included a blood pressure of 103/60, pulse 68, respiratory rate 18, maximu m temperature in the last 24 hours 98.7 degrees Fahrenheit, oxygen saturation was 92% on 50 liters by Ventimask. This improved to 99%-100% on 100% nonrebreather mask. HEENT: Reveals normocephalic and atraumatic. The pupils are equal, round, and reactive to light and accommodation. Extraocular muscles intact bilaterally. The patient has no sclerae icterus present. Oral mucosa pink and moist. No lesions are noted. NECK: Supple. No palpable lymphadenopathy or thyromegaly present. LUNGS: Reveals few expiratory wheezes. He has bibasilar rhonchi. Breathing otherwise regular and u nlabored. ABDOMEN: Soft, nontender, nondistended. EXTREMITIES: Reveals 2+ radial and pedal pulses bilaterally. No ankle edema is present. NEUROLOGIC: Reveals no focal deficits present. LABORATORY DATA: Today includes a CBC with 11,100 white blood cells, hemoglobin 11.4, hematocrit is 36.9, and platelet count is 78,000. Metabolic profile: Sodium 152, potassium 3.3, chloride is 120, bicarbonate is 22, BUN is 24, creatinine is 1.01, and glucose is 85. Magnesium 2.1, phosphorus is 3. 3. IMPRESSION: 1. Acute hypokalemia. 2. Acute pulmonary insufficiency with hypoxia. 3. Postoperative day #3, status post TFN right intertrochanteric femur fracture. 4. Resolved acute septic shock. PLAN: 1. Correct abnormal electrolytes. 2. Continue with physical and occupational therapy and ask PM&R to evaluate the patient in considera tion for inpatient rehabilitation. 3. Increase free water intake to correct for acute hyponatremia. Above findings and plan discussed with the patient who indicates understanding of the information giv en. I have answered his questions.
--- NOTE | 2017-09-25 19:56 | RAD ---
KUB: HISTORY: Check position of Dobhoff tube. COMPARISON: Earlier exam done today. FINDINGS: There is air within both small and large bowel without signs of obstruction. There is aneurysmal dil atation of the aorta, which measures in the 6 cm range. I do not visualized a Dobhoff feeding tube o n this exam. IMPRESSION: I do not see a Dobhoff feeding tube on this exam. Otherwise, stable study from exam done earlier rachael cohen. POS: [facility]
--- NOTE | 2017-09-25 20:09 | RAD ---
KUB: HISTORY: Dobhoff tube placement. FINDINGS: This exam shows the Dobhoff feeding tube is now within the fundus of the stomach. IMPRESSION: Dobhoff feeding tube in the fundus region of the stomach. POS: [facility]
[2017-09-26] MEDS: traMADol HCl 50 MG TAB PO SCH ×5 (00:54→22:49)
[2017-09-26] MEDS: Acetaminophen 500 MG TAB PO SCH ×5 (03:02→22:49)
[2017-09-26] MEDS: Oxazepam 10 MG CAP PO SCH ×4 (03:02→22:49)
[2017-09-26] MEDS: Piperacillin/Tazobactam 3.375 GM in Sodium Chloride 0.9% 100 ML IVPB SCH ×4 (03:12→22:49)
[2017-09-26 04:51] LABS: Anion Gap 9 mmol/L (10-20); BUN (Urea Nitrogen) 27 mg/dL (8.4-25.7); Calc. Creatinine Clearance 69 mL/min (70-130); Calcium 7.5 mg/dL (7.8-10.44); Carbon Dioxide 27 mmol/L (23-31); Chloride 120 mmol/L (98-107); Estimated GFR-MDRD 78; Glucose 131 mg/dL (83-110); Potassium 3.4 mmol/L (3.5-5.1); Sodium 153 mmol/L (136-145)
[2017-09-26 05:11] LABS: Band 6 % (5-11); Hemoglobin 9.6 g/dL (14.0-18.0); Lymphocytes 3 % (21-51); MDiff Complete? YES; Macrocytosis SLIGHT = 6-15 cells (100X) (0-5/hpf); Mean Corpuscular HGB CONC 31.5 g/dL (32.0-36.0); Mean Corpuscular Hemoglobin 30.8 pg (27.0-31.0); Mean Corpuscular Volume 97.9 fl (80.0-94.0); Mean Platelet Volume 9.5 fL (7.4-10.4); Monocytes 2 % (0-10); Neutrophil 89 % (42-75); Ovalocytes SLIGHT = 2-5 cells (100X) (0-1/hpf); PLT Morphology Comment Appears Decreased; Platelet Count 123 thou/uL (130-400); RBC Distribution Width 19.1 % (11.5-14.5); Red Blood Cell (RBC) Count 3.11 mill/uL (4.70-6.10); White Blood Cell (WBC) Count 9.3 thou/uL (4.8-10.8)
[2017-09-26] MEDS: Enoxaparin Sodium 30 MG/0.3 ML SYRINGE SC SCH ×2 (10:32→10:40)
[2017-09-26] MEDS: Famotidine 20 MG TAB PO SCH ×2 (10:32→10:43)
[2017-09-26] MEDS: Folic Acid 1 MG TAB PO SCH ×2 (10:32→10:42)
[2017-09-26] MEDS: Tamsulosin HCl 0.4 MG CAP PO SCH ×2 (10:32→10:42)
[2017-09-26] MEDS: Potassium Chloride 20 MEQ in Premix Bag 1 BAG IVPB SCH ×2 (10:33→13:40)
[2017-09-26] MEDS: Spironolactone 25 MG TAB PO SCH ×2 (10:34→10:43)
[2017-09-26] MEDS ORDERED: Lorazepam 0.5 MG TAB PO PRN (14:24)
--- NOTE | 2017-09-26 15:58 | PRG ---
DATE OF SERVICE: 09/26/2017 SUBJECTIVE: Mr. Ruiz is a 72-year-old man who is post-admission day #6 following an apparent fall wh ere he sustained a closed right hip fracture. The patient was found down, unknown duration. He was admitted with acute septic shock requiring fluid and vasopressor support. Acute blood loss anemia an d was also treated with blood transfusions. The patient had a posttraumatic acute respiratory failur e requiring mechanical ventilator support. Currently, the patient is on no mechanical ventilatory metcalf pport. He requires supplemental oxygen; however, to treat episodic hypoxia. Overnight, the patient has done well. He is less impulsive. His oxygenation has improved since being placed on steroids ye . Today, the patient denies any syncope, chest or abdominal pain. He is tolerating oral inta ke, having normal bowel and urinary function. OBJECTIVE: VITAL SIGNS: This morning includes blood pressure 106/66, pulse 109, respiratory rate 20, maximum te mperature in the last 24 hours 98.6 degrees Fahrenheit, oxygen saturation 97% on FiO2 of 50%. HEENT: Reveals normocephalic and atraumatic. Pupils equal, round, reactive to light and accommodati on. He has no jugular venous distention noted. HEART: Reveals regular rate with mild sinus tachycardia. No murmurs or gallops auscultated. LUNGS: Reveal scattered rhonchi. Breathing regular and unlabored. ABDOMEN: Soft, nontender, nondistended. EXTREMITIES: With 2+ radial and pedal pulses bilaterally. No ankle edema is present. NEUROLOGIC: Reveals no focal deficits present. LABORATORY DATA: Laboratory findings today includes CBC with 9300 white blood cells, hemoglobin and hematocrit 9.6 and 30.4 respectively, platelet count stable at 123,000. Metabolic profile: Sodium 1 33, potassium 3.4, chloride is 120, bicarbonate 27, BUN is 27, creatinine 0.95, glucose 131, magnesiu m 2.0, phosphorus is 3.0. IMPRESSION: 1. Post-admission day #6 status post apparent ground level fall. 2. Closed right hip fracture status post repair. 3. Resolving acute pulmonary insufficiency. 4. Stable acute blood loss anemia. 5. Acute hypokalemia. 6. Resolving acute kidney injury. PLAN: 1. Continue with physical and occupational therapy. 2. Correct abnormal electrolytes. 3. We will ask PM&R to evaluate the patient for possible inpatient rehabilitation. Above findings and plan discussed with the patient, who indicates understanding of information given. We will consider transferring the patient to general surgical floor where his care will continue.
[2017-09-27] MEDS: Acetaminophen 500 MG TAB PO SCH ×4 (04:00→20:48)
[2017-09-27] MEDS: Oxazepam 10 MG CAP PO SCH ×4 (04:00→20:52)
[2017-09-27] MEDS: Piperacillin/Tazobactam 3.375 GM in Sodium Chloride 0.9% 100 ML IVPB SCH ×4 (04:10→20:53)
[2017-09-27] MEDS: traMADol HCl 50 MG TAB PO SCH ×4 (05:09→23:43)
[2017-09-27] MEDS: Famotidine 20 MG TAB PO SCH ×3 (10:20→20:53)
[2017-09-27] MEDS: Folic Acid 1 MG TAB PO SCH (10:21)
[2017-09-27] MEDS: Tamsulosin HCl 0.4 MG CAP PO SCH (10:21)
[2017-09-27] MEDS: Spironolactone 25 MG TAB PO SCH (10:21)
[2017-09-27] MEDS: Enoxaparin Sodium 30 MG/0.3 ML SYRINGE SC SCH (10:21)
[2017-09-27] MEDS: Hydrochlorothiazide 25 MG TAB PO SCH (20:52)
[2017-09-28] MEDS: Piperacillin/Tazobactam 3.375 GM in Sodium Chloride 0.9% 100 ML IVPB SCH (02:14)
[2017-09-28] MEDS: Oxazepam 10 MG CAP PO SCH ×4 (02:14→20:46)
[2017-09-28] MEDS: Acetaminophen 500 MG TAB PO SCH ×4 (02:57→20:46)
[2017-09-28 05:09] LABS: #Lymphocytes 0.4 thou/uL (1.20-3.40); #Monocytes 0.1 thou/uL (0.11-0.59); %Basophils 0.1 % (0.0-1.0); %Eosinophils 0.4 % (0.0-10.0); %Lymphocytes 3.8 % (21.0-51.0); %Monocytes 1.3 % (0.0-10.0); %Neutrophils 94.4 % (42.0-75.0); Hemoglobin 9.1 g/dL (14.0-18.0); Mean Corpuscular HGB CONC 31.3 g/dL (32.0-36.0); Mean Corpuscular Hemoglobin 30.9 pg (27.0-31.0); Mean Corpuscular Volume 98.8 fl (80.0-94.0); Mean Platelet Volume 9.7 fL (7.4-10.4); Platelet Count 203 thou/uL (130-400); RBC Distribution Width 18.4 % (11.5-14.5); Red Blood Cell (RBC) Count 2.95 mill/uL (4.70-6.10); White Blood Cell (WBC) Count 9.5 thou/uL (4.8-10.8)
[2017-09-28] MEDS: traMADol HCl 50 MG TAB PO SCH ×3 (05:26→18:36)
[2017-09-28 05:32] LABS: Anion Gap 15 mmol/L (10-20); BUN (Urea Nitrogen) 29 mg/dL (8.4-25.7); Calc. Creatinine Clearance 76 mL/min (70-130); Calcium 7.4 mg/dL (7.8-10.44); Carbon Dioxide 26 mmol/L (23-31); Chloride 115 mmol/L (98-107); Estimated GFR-MDRD 88; Glucose 141 mg/dL (83-110); Magnesium 2.1 mg/dL (1.6-2.6); Potassium 3.6 mmol/L (3.5-5.1); Sodium 152 mmol/L (136-145)
[2017-09-28 05:41] LABS: Phosphorus 3.3 mg/dL (2.3-4.7)
[2017-09-28] MEDS: Famotidine 20 MG TAB PO SCH ×2 (08:53→20:46)
[2017-09-28] MEDS: Hydrochlorothiazide 25 MG TAB PO SCH ×2 (08:53→20:46)
[2017-09-28] MEDS: Tamsulosin HCl 0.4 MG CAP PO SCH (08:53)
[2017-09-28] MEDS: Folic Acid 1 MG TAB PO SCH (08:53)
[2017-09-28] MEDS: Enoxaparin Sodium 30 MG/0.3 ML SYRINGE SC SCH (08:54)
[2017-09-28] MEDS: Spironolactone 25 MG TAB PO SCH (08:54)
[2017-09-28] MEDS: predniSONE 20 MG TAB PO SCH (08:57)
[2017-09-28] MEDS: Lorazepam 0.5 MG TAB PO PRN ×2 (11:23→20:46)
--- NOTE | 2017-09-28 17:09 | PRG ---
DATE OF SERVICE: 09/28/2017 SUBJECTIVE: Mr. Lanier is currently on the intermediate care unit. By report, he has done well overn ight. He did require Ventimask for a short period of time, but far less time than previous and he is currently on nasal cannula. The patient is tolerating his diet. His pain is controlled and this mo rning, states he has no complaints. PHYSICAL EXAMINATION: VITAL SIGNS: Temperature is 97.2, heart rate 52, blood pressure 127/60, respirations 24, oxygen satu ration is 95% on 2 liters via nasal cannula. GENERAL: The patient is awake, alert and responsive. He is being appropriate this morning. HEENT: Unremarkable. LUNGS: Scattered rhonchi with occasional wheezes. HEART: Has regular rate and rhythm. ABDOMEN: Soft, flat, nontender with active bowel sounds. Postop dressing is clean, dry, and intact. EXTREMITIES: Neurovascularly intact x4. LABORATORY DATA: White blood cell count 9.5, hemoglobin 9.1, hematocrit 29.2, platelets 203. Sodium 152, potassium 3.6, chloride 115, CO2 26, BUN 29, creatinine 0.86, glucose 141, magnesium 2.1, phosp horus 3.3. ASSESSMENT AND PLAN: 1. Status post delayed presentation of a ground level fall. 2. Status post open reduction and internal fixation of right hip fracture. 3. Resolving acute pulmonary insufficiency. 4. Hypernatremia. Plan will be to continue supportive care. Encourage free water. Continue physical and occupational therapy and we will transfer the patient to the surgical floor today and begin placement procedures.
[2017-09-29] MEDS: traMADol HCl 50 MG TAB PO SCH ×5 (00:03→23:22)
[2017-09-29] MEDS: Oxazepam 10 MG CAP PO SCH ×5 (02:45→20:25)
[2017-09-29] MEDS: Acetaminophen 500 MG TAB PO SCH ×4 (02:45→20:24)
[2017-09-29] MEDS ORDERED: Lorazepam 1 MG TAB PO PRN (04:05)
[2017-09-29] MEDS: Famotidine 20 MG TAB PO SCH ×2 (10:01→20:24)
[2017-09-29] MEDS: Folic Acid 1 MG TAB PO SCH (10:02)
[2017-09-29] MEDS: predniSONE 20 MG TAB PO SCH (10:02)
[2017-09-29] MEDS: Enoxaparin Sodium 30 MG/0.3 ML SYRINGE SC SCH (10:02)
[2017-09-29] MEDS: Hydrochlorothiazide 25 MG TAB PO SCH ×3 (10:02→20:24)
[2017-09-29] MEDS: Tamsulosin HCl 0.4 MG CAP PO SCH (10:02)
[2017-09-29] MEDS: Spironolactone 25 MG TAB PO SCH (10:02)
--- NOTE | 2017-09-29 16:20 | PRG ---
DATE OF SERVICE: 09/29/2017 SUBJECTIVE: Joel Ruiz is a 72-year-old male status post fall hospital day 10, status post hip fra cture repair. He was admitted for septic shock requiring fluid and vasopressor support. The patient has been transferred to the surgical floor from [facility] yesterday. There were no acute overnight event s. His respiratory insufficiency continues to improve. He is being diuresed with Aldactone and hydr ochlorothiazide. Upon my evaluation this morning, patient vocalized no complaints. He is currently awaiting placement at a skilled level nursing facility. PHYSICAL EXAMINATION: VITAL SIGNS: Temperature 97.7, pulse 94, respirations 20, O2 sat 98% on 3 liters nasal cannula, bloo d pressure 120/78. GENERAL: Well-developed elderly appearing male in no acute distress. HEAD: Normocephalic, atraumatic. EYES: Pupils are PERRLA. Extraocular movements are intact. NECK: Supple. Trachea is midline. PULMONARY: Normal work of breathing. Symmetric rise. He has bibasilar wheezing. CARDIOVASCULAR: Regular rate and rhythm. GASTROINTESTINAL: Abdomen is soft, nontender, and nondistended. MUSCULOSKELETAL: Moves all extremities x4. NEUROLOGIC: Patient is alert and oriented to self only. No focal deficit is noted. LABORATORY DATA: No new laboratory findings. PLAN: Continue supportive care as ordered. Patient has had persistent hypernatremia in the setting of volume and fluid overload, status post aggressive fluid resuscitation and hydration in the setting of septic shock. Continue to wean oxygen as tolerated. Continue PT and OT. Discussed with case jaclyn londono regarding insurance and final disposition. The patient was discussed with Dr. Martinez. [facility] medicine consult placed for medical management. Decrease Serax to b.i.d. Patient is now 10 da ys into his hospitalization and risk for withdrawal is low. Continue oral steroids/prednisone taper.
[2017-09-29] MEDS ORDERED: Potassium Chloride 40 MEQ in Dextrose 5% in Water 1,000 ML IV SCH (21:45)
--- NOTE | 2017-09-29 22:54 | CON ---
DATE OF CONSULTATION: 09/29/2017 DATE OF ADMISSION: 09/19/2017 PRIMARY CARE PHYSICIAN: Danielle Johnson D.O. PRIMARY SERVICE ATTENDING: Junoir Wagoner D.O. REASON FOR CONSULT: Medical management and electrolyte abnormalities. HISTORY OF PRESENT ILLNESS: This is a 72-year-old male who initially presented on 09/20/19 18, status post mechanical fall, likely ground level sustaining a displaced right intertrochanteric f emur fracture with associated septic shock and hypovolemic shock. The patient was initially managed in the critical care unit on mechanical ventilation and vasopressor support and given aggressive flui d replacement and electrolyte replacement. The patient subsequently underwent TFN into the right fem oral intertrochanteric femur fracture. The patient was managed postoperatively, receiving 3 units of packed red blood cells and 1 unit of platelets. The patient has been hospitalized for approximately 10 days, managed by the Trauma and Orthopedic Surgery service. The patient transitioned to surgical floor after extubation and noted with persistent electrolyte disturbance including hyponatremia, hyp okalemia, metabolic acidosis, and acute kidney injury, slowly improving. The patient was also noted with elevated BNP and concern for volume overload. The patient was also noted with an approximate 23 -pound weight gain from 09/19/2017 to 09/28/2017. The patient has currently been managed with electr olyte replacement including potassium supplementation as well as the use of potassium-sparing diureti cs with hydrochlorothiazide and spironolactone. The patient has had marginal p.o. intake, eating abdias roximately 50% of his meals. The patient also apparently minimally working with physical therapy due to combativeness and lack of motivation. A 2D transthoracic echocardiogram was performed due to vol ume overload concerns and pulmonary edema showing a preserved ejection fraction of 50-55% with diasto lic dysfunction. Hospitalist service is being consulted for general medical management and electroly te disturbance. PAST MEDICAL HISTORY: 1. Recurrent mechanical falls with bilateral hip fractures. 2. Right intertrochanteric femur fracture, status post mechanical fall with TFN repair, 09/22/2017. 3. Alcohol abuse. 4. Tobacco abuse. 5. Status post septic and hypovolemic shock. 6. Osteoarthritis. PAST SURGICAL HISTORY: 1. Status post TFN nail to the left femur in 2014. 2. Status post TFN nail to right femur fracture, 09/22/2017. CURRENT MEDICATIONS: 1. Lovenox 30 mg subcutaneously daily. 2. Pepcid 20 mg p.o. b.i.d. 3. Folic acid 1 mg p.o. daily. 4. Hydrochlorothiazide 12.5 mg p.o. b.i.d. 5. DuoNeb 3 mL nebulized q.6 h. p.r.n. 6. Lorazepam 0.5 mg p.o. q.8 h. p.r.n. 7. Serax 10 mg p.o. b.i.d. 8. Prednisone 20 mg p.o. daily. 9. Spironolactone 25 mg p.o. daily. 10. Flomax 0.4 mg p.o. daily. 11. Thiamine 100 mg p.o. daily. 12. Tramadol 50 mg p.o. q.6 h. p.r.n. pain. ALLERGIES: No known drug allergies. FAMILY HISTORY: No inheritable diseases per patient report. SOCIAL HISTORY: Resides in [place], [place]. Single heavy alcohol use. Smokes up to a pack of cigar ettes daily. No illicit drug use. Mechanical falls at home x2. REVIEW OF SYSTEMS: Unobtainable due to the patient's altered mental status and confusion. PHYSICAL EXAMINATION: VITAL SIGNS: Currently, blood pressure 112/68, pulse 107, respiratory rate 20, temperature 97.5 degr ees Fahrenheit, O2 saturation 95% on 2 liters per minute by nasal cannula. GENERAL APPEARANCE: This is a 72-year-old male, alert, answering questions, oriented x1. HEENT: Pupils are equal, round, and reactive to light and accommodation. Extraocular muscles are in tact. No scleral icterus, no conjunctival injection. Nares patent. OP is clear. Oral mucosa dry a ppearing. NECK: Supple, no cervical adenopathy, no thyromegaly, no carotid bruits, no JVD appreciated. Cervic al spine with full active and passive range of motion. No meningeal signs appreciated. CHEST: Coarse breath sounds bilaterally with expiratory wheezes. CARDIOVASCULAR: S1, S2 without noted murmur, rub, or gallop. Distant heart sounds. ABDOMEN: Rounded, soft, nontender, nondistended. Bowel sounds are positive in all four quadrants. There is no hepatosplenomegaly, no abdominal bruits, no rebound or guarding appreciated. EXTREMITIES: Pitting edema to the lower tibia bilaterally, right greater than left. Predilection of edema in the ankle region, right greater than left. Post-surgical changes noted in the right femur laterally consistent with surgical history. Pulses palpable distally at the dorsalis pedis, posterio r tibial, and popliteal arteries bilaterally. Capillary refill less than 2 seconds. NEUROLOGIC: Alert and oriented x1. Pleasant. Cranial nerves II-XII are grossly intact. No focal o r lateralizing signs appreciated. Not observed ambulatory during this exam. PERTINENT LABORATORY AND X-RAY FINDINGS: Sodium 152, potassium 3.6, chloride 115, CO2 of 26, anion g ap of 15, BUN 29, creatinine 0.86, estimated GFR of 88, glucose 141, calcium 7.4, phosphorus 3.3, mag nesium 2.1. BNP ranged between 137 to 138 on 09/26/2017. CBC showed a white blood cell count of 9.5 , hemoglobin 9, hematocrit 29, MCV 99, platelet count 203 with 94% neutrophils. Portable chest x-ray dated 09/23/2017 showed bilateral interstitial changes consistent with edema. A 2D transthoracic ec hocardiogram dated 09/20/2017 showed ejection fraction of 50-55%. Diastolic dysfunction noted. Mild left atrial enlargement. Moderate mitral valve regurgitation. EKG dated 09/19/2017 by my interpret ation shows sinus mechanism with right bundle branch block pattern. Attenuated R waves noted in the precordial leads. Left axis deviation. ASSESSMENT AND PLAN: 1. Hypernatremia. Persistent. We will initiate D5 water with 40 mEq of KCl at 50 mL per hour. We will continue low volume fluid replacement and monitor serial sodium. The patient clinically appears dry with likely edema secondarily to dependency and prior surgical history. Hold HCTZ. Continue sp ironolactone 25 mg daily. 2. Pulmonary edema with hypoxemia. We will continue to monitor clinically. Repeat portable chest x -ray as last chest imaging performed on 09/23/2017. Suspect multifactorial hypoxemia including likely chronic obstructive pulmonary disease. Continue DuoNebs q.6 h. Add Dulera 2 puffs inhaled b.i.d. A dd Spiriva HandiHaler 18 mcg daily. Encourage out of bed and vertical positioning. 3. Diastolic dysfunction with preserved ejection fraction of 50-55%. We will continue Aldactone 25 mg daily. May consider short-term use of Lasix if clinically indicated after low volume IV fluid rep lacement. Continue potassium supplementation. 4. Hypokalemia, improving. We will continue potassium supplementation and monitor serially. 5. Metabolic encephalopathy. Persistent. Suspect multifactorial given patient's overall clinical c ondition in conjunction with long-term alcohol abuse. Continue supportive management. Likely patien t will benefit from supervised medical care after discharge. 6. Prophylaxis. Lovenox 30 mg subcutaneously daily. Pepcid 20 mg p.o. b.i.d. PT for mobilization range of motion exercises. Add multivitamin p.o. daily. Change Ensure to high protein supplements t .i.d. 7. Code status is FULL. Surrogate medical decision maker not identified. Thank you for the consultation. We will continue to monitor and follow the patient with primary serv ice. Thank you for the consult.
[2017-09-30] MEDS: Acetaminophen 500 MG TAB PO SCH ×4 (05:31→20:10)
[2017-09-30] MEDS: traMADol HCl 50 MG TAB PO SCH ×4 (05:32→23:07)
[2017-09-30 06:22] LABS: ALT (SGPT) 22 U/L (8-55); AST (SGOT) 22 U/L (5-34); Albumin 2.2 g/dL (3.4-4.8); Alkaline Phosphatase 77 U/L (40-150); Anion Gap 12 mmol/L (10-20); BUN (Urea Nitrogen) 19 mg/dL (8.4-25.7); Bilirubin, Total 0.8 mg/dL (0.2-1.2); Calc. Creatinine Clearance 99 mL/min (70-130); Calcium 7.1 mg/dL (7.8-10.44); Carbon Dioxide 26 mmol/L (23-31); Chloride 103 mmol/L (98-107); Estimated GFR-MDRD Greater than 90; Globulin 2.3 g/dL (2.4-3.5); Glucose 83 mg/dL (83-110); Magnesium 1.3 mg/dL (1.6-2.6); Phosphorus 2.9 mg/dL (2.3-4.7); Potassium 3.1 mmol/L (3.5-5.1); Protein, Total 4.5 g/dL (5.8-8.1); Sodium 138 mmol/L (136-145)
[2017-09-30 06:24] LABS: #Eosinphils 0.2 thou/uL (0.0-0.7); #Lymphocytes 1.2 thou/uL (1.20-3.40); #Monocytes 0.2 thou/uL (0.11-0.59); #Neutrophils 7.3 thou/uL (1.40-6.50); %Basophils 0.2 % (0.0-1.0); %Eosinophils 2.7 % (0.0-10.0); %Lymphocytes 13.5 % (21.0-51.0); %Monocytes 2.2 % (0.0-10.0); %Neutrophils 81.3 % (42.0-75.0); Hemoglobin 8.8 g/dL (14.0-18.0); Mean Corpuscular HGB CONC 32.6 g/dL (32.0-36.0); Mean Corpuscular Hemoglobin 31.4 pg (27.0-31.0); Mean Corpuscular Volume 96.5 fl (80.0-94.0); Platelet Count 200 thou/uL (130-400); RBC Distribution Width 18.2 % (11.5-14.5); Red Blood Cell (RBC) Count 2.79 mill/uL (4.70-6.10)
[2017-09-30 06:33] LABS: Free T4 (Free Thyroxine) 0.86 ng/dL (0.70-1.48)
[2017-09-30] MEDS ORDERED: Spiriva 18 MCG CAP (Box of 5 Caps) INH SCH (07:00)
[2017-09-30] MEDS: Mometasone/Formoterol 120 PUFF INHALER INH SCH ×2 (08:07→19:14)
[2017-09-30] MEDS ORDERED: Magnesium Sulfate 4 GM in Sodium Chloride 0.9% 250 ML 250 ML IVPB SCH (08:30)
[2017-09-30] MEDS: Potassium Chloride 20 MEQ TAB PO SCH ×3 (08:41→17:25)
[2017-09-30] MEDS: Multivitamin W/ Minerals 1 TAB PO SCH (08:42)
[2017-09-30] MEDS: Famotidine 20 MG TAB PO SCH ×2 (08:42→20:10)
[2017-09-30] MEDS: Folic Acid 1 MG TAB PO SCH (08:42)
[2017-09-30] MEDS: predniSONE 20 MG TAB PO SCH (08:42)
[2017-09-30] MEDS: Tamsulosin HCl 0.4 MG CAP PO SCH (08:42)
[2017-09-30] MEDS: Oxazepam 10 MG CAP PO SCH ×2 (08:42→20:10)
[2017-09-30] MEDS: Spironolactone 25 MG TAB PO SCH (08:42)
[2017-09-30] MEDS: Enoxaparin Sodium 30 MG/0.3 ML SYRINGE SC SCH (08:43)
--- NOTE | 2017-09-30 08:48 | RAD ---
CHEST 1 VIEW: COMPARISON: 09/23/17. HISTORY: Pulmonary edema. Hypoxia. FINDINGS: Persistent opacification of the lung parenchyma. Stable configuration of the cardiac silhouette. No pneumothorax. Diffuse bone demineralization. Old right rib fractures are suspected. IMPRESSION: Persistent opacification of the lung parenchyma which may represent edema or infiltrate, superimposed upon chronic change. POS: [facility]
--- NOTE | 2017-09-30 18:13 | PRG ---
DATE OF SERVICE: 09/30/2017 SUBJECTIVE: This is a 72-year-old male status post fall, hospital day 11, status post hip fracture r epair. He was admitted for septic shock, requiring fluid and vasopressor support. The patient has b een transferred to the surgical floor. Overnight, there were no acute events. He was evaluated by [facility] yesterday. Respiratory status remained stable. Upon my evaluation, he vocalizes no complaints. OBJECTIVE: VITAL SIGNS: Temperature 97.4, pulse 74, respiration 20, O2 sat 96% on 2 liters nasal cannula, and b lood pressure 114/75. GENERAL: Elderly appearing male in no acute distress, sitting in a chair, out of bed. HEAD: Normocephalic, atraumatic. PULMONARY: Normal work of breathing, symmetric rise. LUNGS: Clear to auscultation bilaterally. CARDIOVASCULAR: Regular rate and rhythm. GASTROINTESTINAL: Soft, nontender, nondistended. MUSCULOSKELETAL: Moves all extremities x4. NEUROLOGIC: The patient is oriented to self and place today. No focal deficit was noted. LABORATORY DATA: WBC 9.0, hemoglobin 8.8, hematocrit 26.9, platelet count 200. Sodium 138, potassiu m 3.1, chloride 103, carbon dioxide 26, BUN 19, creatinine 0.68, glucose 83, calcium 7.1, phosphorus 2.9, and magnesium 1.3. RADIOGRAPHIC FINDINGS: Chest x-ray per Radiology read demonstrated persistent opacification of lung parenchyma represent superimposed upon chronic change. ASSESSMENT: 1. Status post fall with history of multiple falls. 2. Left hip fracture, postop day 7 status post repair. 3. Septic shock, resolved. 4. Acute respiratory failure, improving. 5. Hypernatremia, improved. 6. History of alcohol abuse. 7. History of tobacco abuse. 8. Acute traumatic pain, stable. 9. Hypokalemia. 10. Anemia, stable. 11. Encephalopathy. 12. Heart failure with preserved ejection fraction. PLAN: Continue care as ordered. Replete electrolytes. Morning labs. Wean oxygen as tolerated. Fo llow up [facility] medicine recommendations. The patient was discussed with trauma attending.
--- NOTE | 2017-09-30 22:32 | PDOC.PN ---
- Subjective Encounter Start Date: 09/30/17 Encounter Start Time: 15:00 Patient seen and examined for med mngt. No new complaints. No overnight events - Objective MAR Reviewed: Yes Vital Signs & Weight: Vital Signs (12 hours) Temp Pulse Resp BP BP Pulse Ox 09/30/17 19:56 97.7 F 89 20 95/59 L 95 09/30/17 18:30 94 16 96 09/30/17 15:50 89 18 09/30/17 15:16 97.5 F L 84 20 113/71 96 09/30/17 12:41 97.4 F L 74 20 114/75 96 Weight Admit Weight 131 lb 2.801 oz Weight 172 lb 3.2 oz Most Recent Monitor Data Heart Rate from ECG 105 NIBP 109/61 NIBP BP-Mean 74 Respiration from ECG 15 SpO2 94 I&O: 09/29/17 09/30/17 10/01/17 06:59 06:59 06:59 Intake Total 800 2560 1250 Output Total 350 850 Balance 800 2210 400 Result Diagrams: 09/30/17 04:16 10/01/17 05:30 Phys Exam - Physical Examination Constitutional: NAD Respiratory: no wheezing, no rhonchi Dx/Plan (1) Hypomagnesemia Code(s): E83.42 - HYPOMAGNESEMIA Status: Acute Plan: 4 gm Mg x 1 (2) Hypokalemia Code(s): E87.6 - HYPOKALEMIA Status: Acute Plan: Will replace (3) Hypernatremia Code(s): E87.0 - HYPEROSMOLALITY AND HYPERNATREMIA Status: Acute Plan: Corrected. Will dc IVF - Plan -: Will follow PRN. Review of Systems - Review of Systems Respiratory: negative: Cough, Dry, Shortness of Breath, Hemoptysis, SOB with Excertion, Pleuritic Pain, Sputum, Wheezing Cardiovascular: negative: chest pain, palpitations, orthopnea, paroxysmal nocturnal dyspnea, edema, light headedness, other - Medications/Allergies Allergies/Adverse Reactions: Allergies Allergy/AdvReac Type Severity Reaction Status Date / Time No Known Allergies Allergy Verified 09/19/17 17:14 Medications: Current Medications Acetaminophen (Tylenol) 1,000 mg PO Q6H [facility] Last Admin: 09/30/17 20:10 Dose: 1,000 mg Albuterol/Ipratropium (Duoneb) 3 ml NEB [id number] PRN PRN Reason: SOB &/or Wheezing Albuterol/Ipratropium (Duoneb) 3 ml NEB [id number] [facility] Last Admin: 09/30/17 18:30 Dose: 3 ml Collagenase (Santyl 250 Units/Gram Ointment) 0 gm TOP DAILY [facility] Dextrose/Water (Dextrose 50%) 25 gm SLOW IVP PRN PRN PRN Reason: Hypoglycemia Enoxaparin Sodium (Lovenox) 30 mg SC 0900 [facility] Last Admin: 09/30/17 08:43 Dose: 30 mg Famotidine (Pepcid) 20 mg PO BID [facility] Last Admin: 09/30/17 20:10 Dose: 20 mg Folic Acid (Folvite) 1 mg PO DAILY [facility] Last Admin: 09/30/17 08:42 Dose: 1 mg Glucagon (Glucagon) 1 mg IM PRN PRN PRN Reason: Hypoglycemia Dextrose/Water (D5w) 1,000 mls @ 0 mls/hr IV .Q0M PRN; As Directed PRN Reason: Hypoglycemia Iron/Minerals/Multivitamins (Theragran M) 1 tab PO DAILY [facility] Last Admin: 09/30/17 08:42 Dose: 1 tab Lorazepam (Ativan) 0.5 mg PO Q8H PRN PRN Reason: Anxiety/Agitation Last Admin: 09/29/17 04:31 Dose: 0.5 mg Mometasone Furoate/Formoterol Fumar (Dulera 200 Mcg/5 Mcg Inhaler) 2 puff INH BID-RT [facility] Last Admin: 09/30/17 19:14 Dose: 2 puff Ondansetron HCl (Zofran) 4 mg IVP Q6H PRN PRN Reason: Nausea Oxazepam (Serax) 10 mg PO BID [facility] Last Admin: 09/30/17 20:10 Dose: 10 mg Prednisone (Prednisone) 20 mg PO DAILY [facility] Last Admin: 09/30/17 08:42 Dose: 20 mg Sodium Chloride (Flush - Normal Saline) 10 ml IVF PRN PRN PRN Reason: Saline Flush Spironolactone (Aldactone) 25 mg PO QAM-WM [facility] Last Admin: 09/30/17 08:42 Dose: 25 mg Tamsulosin HCl (Flomax) 0.4 mg PO DAILY [facility] Last Admin: 09/30/17 08:42 Dose: 0.4 mg Thiamine HCl (Thiamine) 100 mg PO DAILY [facility] Last Admin: 09/30/17 08:42 Dose: 100 mg Tramadol HCl (Ultram) 50 mg PO Q6HR [facility] Last Admin: 09/30/17 17:26 Dose: 50 mg Tramadol HCl (Ultram) 50 mg PO Q6H PRN PRN Reason: Pain
[2017-10-01] MEDS: Acetaminophen 500 MG TAB PO SCH ×4 (02:45→22:33)
[2017-10-01] MEDS: traMADol HCl 50 MG TAB PO SCH ×4 (05:11→23:51)
[2017-10-01 06:36] LABS: Albumin 2.2 g/dL (3.4-4.8); Anion Gap 7 mmol/L (10-20); BUN (Urea Nitrogen) 20 mg/dL (8.4-25.7); BUN/Creatinine Ratio 30.77; Calc. Creatinine Clearance 112 mL/min (70-130); Calcium 7.5 mg/dL (7.8-10.44); Carbon Dioxide 31 mmol/L (23-31); Chloride 101 mmol/L (98-107); Estimated GFR-MDRD Greater than 90; Glucose 88 mg/dL (83-110); Magnesium 1.8 mg/dL (1.6-2.6); Phosphorus 3.2 mg/dL (2.3-4.7); Potassium 4.7 mmol/L (3.5-5.1); Sodium 134 mmol/L (136-145)
[2017-10-01] MEDS: Spironolactone 25 MG TAB PO SCH (08:47)
[2017-10-01] MEDS: Famotidine 20 MG TAB PO SCH ×2 (08:47→22:33)
[2017-10-01] MEDS: Tamsulosin HCl 0.4 MG CAP PO SCH (08:48)
[2017-10-01] MEDS: predniSONE 20 MG TAB PO SCH (08:48)
[2017-10-01] MEDS: Multivitamin W/ Minerals 1 TAB PO SCH (08:48)
[2017-10-01] MEDS: Enoxaparin Sodium 30 MG/0.3 ML SYRINGE SC SCH (08:48)
[2017-10-01] MEDS: Folic Acid 1 MG TAB PO SCH (08:48)
[2017-10-01] MEDS: Oxazepam 10 MG CAP PO SCH (08:48)
[2017-10-01] MEDS: Collagenase 250 UNITS/GM Ointment 30 GM TUBE TOP SCH (08:49)
[2017-10-01] MEDS: Mometasone/Formoterol 120 PUFF INHALER INH SCH ×2 (09:14→18:41)
--- NOTE | 2017-10-01 16:13 | PRG ---
DATE OF SERVICE: 10/01/2017 SUBJECTIVE: Joel Ruiz is a 72-year-old male, status post fall, hospital day #11, status post hip fracture repair. He was admitted for septic shock that required aggressive fluid and vasopressor sup port. The patient has since been extubated and transferred to the surgical floor. Overnight, there were no acute events. He is being seen and followed by Hospital Medicine for hypertension and hypern atremia. Respiratory status remains stable. Upon my evaluation, the patient vocalized no complaint and pain is controlled with p.o. analgesics. OBJECTIVE: VITAL SIGNS: Temperature 97.7, pulse 96, respirations 16, O2 sat 97% on 2 liters nasal cannula, bloo d pressure 129/80. GENERAL: Elderly appearing male, in no acute distress, resting in bed. PULMONARY: Normal work of breathing. Symmetric rise. Lungs are clear to auscultation bilaterally. CARDIOVASCULAR: Regular rate and rhythm. GASTROINTESTINAL: Abdomen is soft, nontender, and nondistended. MUSCULOSKELETAL: Moves all extremities x4. NEUROLOGIC: The patient is oriented to self, place, year and somewhat oriented to situation. He is still unable to recall the exact events leading up to his hospitalization and does not know what year it is. No focal deficit is noted. LABORATORY FINDINGS: Sodium 134, potassium 4.7, chloride 101, carbon dioxide 31, BUN 20, creatinine 0.65, glucose 88, phosphorus 3.2, magnesium 1.8. RADIOGRAPHIC FINDINGS: No new radiographic findings. ASSESSMENT: 1. Status post fall with history of multiple falls. 2. Left hip fracture, postoperative day #8, status post repair. 3. Septic shock, resolved. 4. Hypernatremia, resolved. 5. Acute respiratory failure, improved and stable. 6. History of alcohol abuse. 7. History of tobacco abuse. 8. Acute traumatic pain, stable. 9. Hypokalemia, resolved. 10. Anemia, stable. PLAN: Continue supportive care as ordered. A.m. labs. Await insurance approval and authorization f or disposition to prison facility. Decrease Serax. Follow Hospital Medicine recommendation s. The patient has been discussed with trauma attending.
[2017-10-02 04:41] LABS: Anion Gap 13 mmol/L (10-20); BUN (Urea Nitrogen) 22 mg/dL (8.4-25.7); Calc. Creatinine Clearance 103 mL/min (70-130); Calcium 7.9 mg/dL (7.8-10.44); Carbon Dioxide 26 mmol/L (23-31); Chloride 101 mmol/L (98-107); Estimated GFR-MDRD Greater than 90; Glucose 83 mg/dL (83-110); Magnesium 1.6 mg/dL (1.6-2.6); Phosphorus 3.3 mg/dL (2.3-4.7); Potassium 4.8 mmol/L (3.5-5.1); Sodium 135 mmol/L (136-145)
[2017-10-02] MEDS: Acetaminophen 500 MG TAB PO SCH ×3 (04:48→15:46)
[2017-10-02] MEDS: traMADol HCl 50 MG TAB PO SCH ×3 (05:28→17:51)
[2017-10-02] MEDS: Mometasone/Formoterol 120 PUFF INHALER INH SCH (08:19)
[2017-10-02] MEDS: Famotidine 20 MG TAB PO SCH (08:44)
[2017-10-02] MEDS: Multivitamin W/ Minerals 1 TAB PO SCH (08:44)
[2017-10-02] MEDS: Tamsulosin HCl 0.4 MG CAP PO SCH (08:45)
[2017-10-02] MEDS: predniSONE 20 MG TAB PO SCH (08:45)
[2017-10-02] MEDS: Spironolactone 25 MG TAB PO SCH (08:45)
[2017-10-02] MEDS: Folic Acid 1 MG TAB PO SCH (08:45)
[2017-10-02] MEDS: Enoxaparin Sodium 30 MG/0.3 ML SYRINGE SC SCH (08:46)
[2017-10-02] MEDS: Collagenase 250 UNITS/GM Ointment 30 GM TUBE TOP SCH (08:58)
[2017-10-02] MEDS ORDERED: Oxazepam 10 MG CAP PO SCH (09:00)
[2017-10-02 13:58] VITALS: BMI 21.9
[2017-10-02 16:48] VITALS: BP 119/69; TEMP 97.7
== END 2017-10-02 19:27 | disposition swing bed (61) | DRG 853 ==
LOC: ERS 14:06 → CCU 16:29 → IMCU/EMU 09-24 11:07 → SURG A 09-28 17:18
PROVIDERS: ADMIT Surgery; ATTEND Surgery
PROC: 30233N1 Transfusion of Nonautologous Red Blood Cells into Peripheral Vein, Percutaneous Approach (ICD-10-PCS; principal; 2017-09-20)
PROC: 5A1945Z Respiratory Ventilation, 24-96 Consecutive Hours (ICD-10-PCS; 2017-09-20)
PROC: 0BH17EZ Insertion of Endotracheal Airway into Trachea, Via Natural or Artificial Opening (ICD-10-PCS; 2017-09-20)
PROC: 3E0G76Z Introduction of Nutritional Substance into Upper GI, Via Natural or Artificial Opening (ICD-10-PCS; 2017-09-21)
PROC: 0QSB06Z Reposition Right Lower Femur with Intramedullary Internal Fixation Device, Open Approach (ICD-10-PCS; 2017-09-22)
DX: A40.3 Sepsis due to Streptococcus pneumoniae (principal); L89.154 Pressure ulcer of sacral region, stage 4; L89.514 Pressure ulcer of right ankle, stage 4; J96.01 Acute respiratory failure with hypoxia; S72.141A Displaced intertrochanteric fracture of right femur, initial encounter for closed fracture; R65.21 Severe sepsis with septic shock; G93.41 Metabolic encephalopathy; E87.0 Hyperosmolality and hypernatremia; N17.9 Acute kidney failure, unspecified; D62 Acute posthemorrhagic anemia; E44.0 Moderate protein-calorie malnutrition; Z68.1 Body mass index [BMI] 19.9 or less, adult; R64 Cachexia; M62.82 Rhabdomyolysis; I50.30 Unspecified diastolic (congestive) heart failure; N39.0 Urinary tract infection, site not specified; L89.112 Pressure ulcer of right upper back, stage 2; L89.021 Pressure ulcer of left elbow, stage 1; L89.892 Pressure ulcer of other site, stage 2; E83.42 Hypomagnesemia; E83.51 Hypocalcemia; E87.6 Hypokalemia; J44.9 Chronic obstructive pulmonary disease, unspecified; F10.20 Alcohol dependence, uncomplicated; R40.2422 Glasgow coma scale score 9-12, at arrival to emergency department; M19.90 Unspecified osteoarthritis, unspecified site; F17.210 Nicotine dependence, cigarettes, uncomplicated; W19.XXXA Unspecified fall, initial encounter; Y92.009 Unspecified place in unspecified non-institutional (private) residence as the place of occurrence of the external cause
CPT/HCPCS: 31500; 36415; 36430; 36556; 51702; 70450; 71045; 72125; 72170; 74018; 76001; 76705; 80048; 80053; 80069; 80076; 80202; 80307; 81003; 81015; 82140; 82306; 82330; 82533; 82550; 82553; 82607; 82747; 82803; 82805; 83605; 83735; 83880; 84100; 84134; 84439; 84443; 84484; 85007; 85025; 85027; 85610; 85730; 86850; 86900; 86901; 87040; 87070; 87077; 87086; 87149; 87186; 87205; 89220; 93005; 93010; 93306; 94002; 94003; 94640; 94660; 94664; 96361; 96365; 96366; 96368; C1713; C1769; G0390; G8978-GP-CN; G8979-GP-CL; G8987-GO-CM; G8988-GO-CK; G8996-GN-CK; G8997-GN-CK; J0131; J1650; J1720; J1940; J2250; J2270; J2543; J2704; J3010; J3370; J3475; J3480; J7050; J7070; J7506; J7620; P9016; P9035; P9045

== ENCOUNTER 2017-10-08 09:48 | Inpatient (IN) | payer MEDICARE, MEDICAID ==
[2017-10-08 12:25] LABS: #Lymphocytes 0.4 thou/uL (1.20-3.40); #Monocytes 0.2 thou/uL (0.11-0.59); #Neutrophils 7.9 thou/uL (1.40-6.50); %Basophils 0.2 % (0.0-1.0); %Eosinophils 0.4 % (0.0-10.0); %Lymphocytes 4.7 % (21.0-51.0); %Monocytes 2.5 % (0.0-10.0); %Neutrophils 92.2 % (42.0-75.0); Hemoglobin 12.5 g/dL (14.0-18.0); Mean Corpuscular HGB CONC 32.2 g/dL (32.0-36.0); Mean Corpuscular Hemoglobin 30.6 pg (27.0-31.0); Mean Corpuscular Volume 95.3 fl (80.0-94.0); Mean Platelet Volume 7.2 fL (7.4-10.4); Platelet Count 280 thou/uL (130-400); Red Blood Cell (RBC) Count 4.07 mill/uL (4.70-6.10); White Blood Cell (WBC) Count 8.6 thou/uL (4.8-10.8)
[2017-10-08 12:31] LABS: CKMB 5.3 ng/mL (0-6.6); Troponin I 0.165 ng/mL (< 0.028)
[2017-10-08] MEDS ORDERED: ISOVUE-370 76%-LOCM 1 ML ONE (12:31)
[2017-10-08 12:47] LABS: ALT (SGPT) 25 U/L (8-55); AST (SGOT) 32 U/L (5-34); Albumin 3.1 g/dL (3.4-4.8); Alkaline Phosphatase 74 U/L (40-150); Anion Gap 12 mmol/L (10-20); BUN (Urea Nitrogen) 19 mg/dL (8.4-25.7); Bilirubin, Total 1.2 mg/dL (0.2-1.2); CK (CPK) 112 U/L (30-200); Calc. Creatinine Clearance 0 mL/min (70-130); Calcium 8.4 mg/dL (7.8-10.44); Carbon Dioxide 26 mmol/L (23-31); Chloride 104 mmol/L (98-107); Estimated GFR-MDRD Greater than 90; Globulin 3.1 g/dL (2.4-3.5); Glucose 119 mg/dL (83-110); Potassium 4.3 mmol/L (3.5-5.1); Protein, Total 6.2 g/dL (5.8-8.1); Sodium 138 mmol/L (136-145)
--- NOTE | 2017-10-08 13:16 | CT ---
CTA THORAX WITH CONTRAST: (Computed Tomographic Angiography, chest(noncoronary) with contrast material, and image postprocessin g) (PE protocol) Date: 10/08/17 Time: 1121 hours HISTORY: 72-year-old male with dyspnea. TECHNIQUE: IV injection of iodinated contrast: 100 mL [id number]. Scan acquisition timing attempted to coincide with iodinated contrast bolus reaching maximal density in pulmonary arteries. 3D MIP reconstructions. FINDINGS: There are bilateral pleural effusions which occupy approximately 40-50% volume of each hemithoracic c avity. The pleural effusions reach the bilateral lung apices. There are severe patchy pulmonary air s pace opacities /consolidations in the bilateral upper lobes, containing many tiny cavitations. There are additional small focal irregularly shaped nodular pulmonary densities in the bilateral upper lobe s, lower lobes, and right middle lobe, right greater than left. At least most of these also probably represent pneumonia. There is no pulmonary thromboembolism. Ectasia of thoracic aorta without aneurys m of the thoracic aorta. In the lowest image slice, there are suggestions of a possible infrarenal ab dominal aortic aneurysm protruding anteriorly and to the left (axial image 141 of 141, series 2). No pneumothorax. No cardiomegaly. Nonspecific multiple mildly enlarged mediastinal and hilar lymph nodes . IMPRESSION: 1. Moderate-large bilateral pleural effusions. 2. Somewhat severe bilateral upper lobe air space densities/consolidations: evidence for bilateral u pper lobe pneumonias. 3. No evidence of pulmonary thromboembolism. 4. Possible infrarenal abdominal aortic aneurysm. Further evaluation with CT of abdomen should be co nsidered. Because the patient received IV contrast load today, the abdominal CT with IV contrast shou ld be performed 3 or more days later. 5. Numerous pulmonary nodular densities throughout both lungs, suggestive of additional pneumonia. silvia[] POS: [facility]
[2017-10-08] MEDS ORDERED: Ondansetron ODT 4 MG TAB PO PRN (14:19)
[2017-10-08] MEDS ORDERED: Ondansetron HCl/PF 4 MG/2 ML Vial IVP PRN ×2 (14:19→14:25)
[2017-10-08] MEDS ORDERED: Acetaminophen 325 MG TAB PO PRN ×2 (14:19→14:25)
[2017-10-08] MEDS ORDERED: Guaifenesin DM 100-10/5 ML UDCUP PO PRN (14:25)
[2017-10-08] MEDS ORDERED: Senokot 8.6 MG TAB PO PRN (14:25)
[2017-10-08] MEDS ORDERED: Lorazepam 1 MG TAB PO PRN (14:25)
[2017-10-08] MEDS ORDERED: traMADol HCl 50 MG TAB PO PRN (14:25)
[2017-10-08] MEDS ORDERED: Mag-Al 1200 mg/1200 mg/30 ML UDCUP PO PRN (14:25)
[2017-10-08] MEDS ORDERED: Sodium Chloride 0.9% 1,000 ML IV SCH (14:30)
[2017-10-08] MEDS: Vancomycin HCl 1.25 GM in Sodium Chloride 0.9% 250 ML 250 ML IVPB SCH (16:12)
[2017-10-08 18:12] LABS: Bilirubin Negative (Negative); Blood, Urine Negative (Negative); Clarity CLEAR (Clear); Glucose, Urine (Dipstick) Negative (Negative); Leukocyte Negative (Negative); Nitrite Negative (Negative); Protein, Urine (Dipstick) Negative (Neg-Trace); Specific Gravity, Urine 1.022 (1.002-1.036); Urobilinogen 0.2 mg/dL (0.2-1.0)
[2017-10-08 18:16] LABS: Bacteria/HPF None Seen HPF (None Seen); Hyaline Casts/LPF 0-3 HYALINE CAST LPF (0-3 Hyaline); Pathc Cast-AUWi Flag 0.14 (0-2.49); Squamous Epithelial 0-3 HPF (0-3); WBC/HPF 0-3 HPF (0-3)
[2017-10-08] MEDS: Arformoterol 15 MCG/2 ML NEB NEB SCH (19:22)
[2017-10-08] MEDS: Budesonide 0.5 MG/2 ML NEB INH SCH (19:23)
--- NOTE | 2017-10-08 20:04 | CON ---
DATE OF CONSULTATION: 10/08/2017 CONSULTING PHYSICIAN: Dr. Isaac from the Hospitalist group. REASON FOR CONSULTATION: Shortness of breath. The following encompassed 70 minutes of time spent with the patient at that time, greater than 50% of the time was spent with the patient and/or on the patient's unit. HISTORY OF PRESENT ILLNESS: History obtained by reviewing notes and by speaking with the patient. I t is noted that he is a rather poor historian. He is a 72-year-old male, who presented to an [facility] ER today for evaluation of dyspnea. He was apparently found on the floor about 7:00 a.m. this morn ing with O2 sat in the low 80s. He has recently been hospitalized on the Trauma Service here with pu lmonary edema and hypoxemia related diastolic cardiac dysfunction after a hip fracture looks like he was just discharged from the hospital may be about a week ago. Currently, he says he is not that keisha rt of breath. He is scared of the doctors and does not want to say much. PAST MEDICAL HISTORY: 1. Hip fractures. 2. Femur fracture with alcohol abuse and tobacco abuse 3. Diastolic cardiac dysfunction. 4. Osteoarthritis. PAST SURGICAL HISTORY: 1. Left femur fracture repair. 2. Right femur fracture repair. MEDICATIONS PRIOR TO ADMISSION: Most recent discharge summary indicates that he was taking tramadol, thiamine, tamsulosin, spironolactone, multivitamin, Dulera, lorazepam, DuoNeb, folate, Pepcid, Loven ox, acetaminophen, iron sulfate. SOCIAL HISTORY: Patient smokes up to a pack of cigarettes per day. Lives in [place]. No history o f illicit drug use. REVIEW OF SYSTEMS: Cannot be obtained secondary to altered mental status. PHYSICAL EXAMINATION: VITAL SIGNS: Temperature 98, pulse 115, blood pressure 134/92, and O2 sat 95% on 3 liters. GENERAL: He is awake, alert, and is in no acute respiratory distress. HEENT: Remarkable for bitemporal wasting. He has poor dentition. NECK: No adenopathy or JVD. LUNGS: Fairly clear. He is hyperinflated has somewhat diminished breath sounds in the bases and rustam e dullness to percussion in the bases. CARDIOVASCULAR: S1, S2 regular, without murmur. ABDOMEN: Soft, nontender, nondistended. EXTREMITIES: No clubbing, cyanosis, or edema. He has severe muscle wasting. LABORATORY DATA: White blood cell count 8.6, hematocrit 38.8, platelet count 280, BNP level 3916. S odium 138, potassium 4.3, chloride 104, CO2 of 26, BUN 19, creatinine 0.6, glucose 119, albumin 3.1. I have reviewed his CT scan personally. He has bilateral effusions, which interestingly or not that visible on a PA and lateral film has a very enlarged liver. He has some chronic interstitial change s in the right upper lobe area. His most recent echocardiogram from 09/21/2017 demonstrated diastoli c dysfunction with EF of 50% to 55%. ASSESSMENT: We are likely looking at congestive heart failure given the bilateral effusions and elev ated BNP and the overall clinical picture. I think this is less likely pneumonia. He gives me a his tory of chronic interstitial lung disease, which is being followed by one a landscaping manager at [facility]. RECOMMENDATIONS: 1. I would diurese the patient implied low flow O2. I would empirically cover him for infection, al though I am not leaning toward this being a pneumonia. 2. Consider Cardiology consultation for medication review and recommendations.
[2017-10-08] MEDS ORDERED: Vancomycin HCl 1 GM in Premix Bag 1 BAG IVPB SCH (21:00)
[2017-10-08] MEDS: HYDROcodone/Acetaminophen 5/325 mg Tablet PO PRN (21:06)
[2017-10-08] MEDS: Furosemide 40 MG/4 ML VIAL SLOW IVP SCH (21:07)
[2017-10-08] MEDS: Carvedilol 3.125 MG TAB PO SCH (21:07)
[2017-10-08] MEDS: Cefepime 1 GM in Sodium Chloride 0.9% 100 ML IVPB SCH (21:07)
[2017-10-08] MEDS: Docusate 100 MG CAP PO SCH (21:07)
--- NOTE | 2017-10-08 22:03 | HP ---
REASON FOR ADMISSION: Acute respiratory failure with hypoxia, possible pneumonia, multiple decubitus ulcers, anasarca, protein malnutrition, hypoalbuminemia, failure to thrive, acute encephalopathy. HISTORY OF PRESENTING ILLNESS: The patient was transferred from [facility] to [facility] after he was found to have had saturations of 81% on room air. This happened around shift change. I did speak to the nurse who was taking care of him and who witnessed the morning shift change drop in saturations. His heart rate was 141. He was in respiratory distress with respiratory rate going up to 34. He was later transferred to [facility] in [place] for higher level of care and hospitalization. The patient is a 72-year-old male who sustained a right hip fracture and was sent to [facility] after trochanteric nail was placed by Dr. Solomon. He got hospitalized here on the 2nd of this month after he was found down with maggots crawling over him and his house was filthy. He was essentially found down for an unknown duration of time and was in septic shock when he was brought here and was essentially intubated. He was hospitalized for 14 days and was discharged to [facility] for further recuperation. He has not ambulated so far. He essentially dangles his legs and sits at the edge of the bed. He was apparently normal yesterday. No fever. Please note, the patient is not fully oriented, although he responds to all questions. He states he is comfortable and he wants to be taken to the other side of the road, so that he could go home. These are inappropriate and patient thinks that he is in [place] and he could just walk back to his home. He has no complaints of chest pain or shortness of breath at present. He is on 2 liters nasal cannula here. PAST MEDICAL AND SURGICAL HISTORY: History of right hip fracture with a trochanteric nail done on 09/22/[address] Solomon. He was intubated and extubated for septic shock on arrival on 09/19/2017. History of hypertension, prior history of alcohol abuse, chronic anemia, pancytopenia, prior history of left hip surgery done in 2014. I have reviewed multiple prior records and progress notes to glean more information about him. PERSONAL HISTORY: The patient was a heavy alcoholic before. He was drinking 5- 6 beers on a daily basis with or without whiskey. He quit smoking a year ago and was smoking almost a pack a day prior to that. No history of drug abuse. Currently, he is a retirement facility resident at [place]. FAMILY HISTORY: Per the progress note by Dr. Izquierdo on 11/25/2014, the patient apparently had 2 brothers dying of heart attacks, one in the 40s and dad lived up to be in 90s. The patient states he has 2 children, Floyd and Tracy, which is not true, which I tried to confirm from [facility]. He apparently has no family members listed. APS pulverizer' s name is Katie Boyce, the number to reach is [phone]. Mr. Miguel Ángel Escobar is a community lands resource manager in [place], the number to reach is . Ms. King apparently works with Mr. Del Rosario, the number to reach her is [phone]. I am unable to reach any of the above three local community workers for now for help regarding his families where about/contacts. ALLERGIES: No known drug allergies. CURRENT MEDICATIONS: The patient is on Pepcid 20 mg twice daily, ferrous sulfate 325 mg daily, folic acid 1 mg daily, DuoNebs q.6 hourly p.r.n., Ativan 0.5 mg p.o. q.8 hourly p.r.n. for agitation, Dulera inhaler twice daily, multivitamin 1 tab once daily, spironolactone 25 mg daily, Flomax 0.4 mg daily, thiamine 100 mg daily, Ultram p.r.n. for pain. REVIEW OF SYSTEMS: Cannot be accurately obtained as patient is not oriented. PHYSICAL EXAMINATION: GENERAL: The patient is a 72-year-old male, who is currently not oriented and is not in any distress. VITAL SIGNS: Blood pressure 134/94, pulse 126 per minute, respiratory rate 24 per minute, saturating 93% on 2 liters nasal cannula. In [place] [facility], the patient was on a nonrebreather and later was saturating 93% on 4 liters oxygen by nasal cannula. Temperature is 98 degrees Fahrenheit. NECK: Supple, no elevated JVD. HEENT: Eyes: Extraocular muscles intact. Pupils are reacting to light. Oral cavity mucous membranes are dry. No exudates or congestion. CARDIOVASCULAR SYSTEM: S1, S2 heard. Regular rhythm. RESPIRATORY SYSTEM: Air entry is decreased bilateral. Scattered rales plus bilateral. ABDOMEN: Soft, bowel sounds heard. No tenderness, rigidity or guarding. EXTREMITIES: The patient has massive anasarca more so in the lower extremities. There is 2+ peripheral edema. The patient has multiple decubitus ulcerations, one stage 4 over the sacral area, which is a large ulcer, which is measuring more than 6 x 7 cm and has a thick black eschar. He also has ulcerations over the right ankle area, right knee. He also has multiple wounds which are punched out over the thigh areas, which are oozing serous fluid: Peripheral pulses are 1+ bilateral, no gangrene seen in the toes. CENTRAL NERVOUS SYSTEM: The patient is not oriented. No gross focal deficits noted. He is seen moving all 4 extremities. PSYCHIATRIC SYSTEM: Cannot be accurately assessed due to patient's current cognitive status. LABORATORY DATA AND IMAGING: White count of 11, H&H 11 and 33, platelet count 254 with 92% neutrophils, MCV is 95. Venous blood gas done at [facility] showed a pH of 7.36, PCO2 of 44, pO2 of 69. Electrolytes: Bicarbonate is 26, potassium 4.3, BUN 19, creatinine 0.6, glucose 119. Liver enzymes within normal limits. Albumin is 3.1, total protein 6.2, globulin 3.1, troponin I is indeterminate peaking up to 0.16. BNP is 3916. CT angio chest done shows bilateral upper lobe infiltrates, large bilateral pleural effusions. No evidence of PE. There is infrarenal abdominal aortic aneurysm seen. EKG done at the [facility] shows a sinus tachycardia at 140 beats per minute. There is RBBB seen. CLINICAL IMPRESSION AND PLAN: The patient will be admitted to telemetry for severe anasarca with hypoalbuminemia, possible pneumonia, bilateral pleural effusions, moderate to severe protein malnutrition, failure to thrive, acute encephalopathy, multiple decubitus ulcers. I have consulted Dr. Hendrix, who will be seeing the patient shortly. We will also consult Wound Care for multiple decubitus ulcers. Blood and urine cultures will be obtained. He will be empirically placed on cefepime and vancomycin for now. We will continue him on aspirin, Lasix 40 mg IV q.12 hourly. We will also place him on a small dose of Coreg and lisinopril along with bowel regimen. He will be on multivitamin, vitamin C, folic acid to help with wound healing. Ensure 1 can 3 times daily. The patient's overall prognosis is poor. Apparently, the patient does not have any family members per retirement facility and I do not have any family members listed on his face sheet. We will obtain a social work consultation to locate family for help with goals of care and code status. APS worker contact is Karissa Katie Boyce, number to reach is [phone]. I am unable to reach her as well. Code status will be FULL for now, pt is not oriented and no family is available to contact. [facility]
[2017-10-09] MEDS: Vancomycin HCl 1.25 GM in Sodium Chloride 0.9% 250 ML 250 ML IVPB SCH ×2 (04:25→16:03)
[2017-10-09 05:13] LABS: #Lymphocytes 0.8 thou/uL (1.20-3.40); %Basophils 0.3 % (0.0-1.0); %Eosinophils 0.3 % (0.0-10.0); %Monocytes 13.8 % (0.0-10.0); %Neutrophils 73.6 % (42.0-75.0); Hemoglobin 10.2 g/dL (14.0-18.0); Mean Corpuscular HGB CONC 31.2 g/dL (32.0-36.0); Mean Corpuscular Hemoglobin 30.6 pg (27.0-31.0); Mean Corpuscular Volume 98.3 fl (80.0-94.0); Mean Platelet Volume 7.5 fL (7.4-10.4); Platelet Count 222 thou/uL (130-400); RBC Distribution Width 17.8 % (11.5-14.5); Red Blood Cell (RBC) Count 3.34 mill/uL (4.70-6.10); White Blood Cell (WBC) Count 6.9 thou/uL (4.8-10.8)
[2017-10-09 05:29] LABS: Anion Gap 12 mmol/L (10-20); BUN (Urea Nitrogen) 17 mg/dL (8.4-25.7); Calc. Creatinine Clearance 116 mL/min (70-130); Calcium 7.5 mg/dL (7.8-10.44); Carbon Dioxide 24 mmol/L (23-31); Chloride 105 mmol/L (98-107); Estimated GFR-MDRD Greater than 90; Glucose 102 mg/dL (83-110); Potassium 3.7 mmol/L (3.5-5.1); Sodium 137 mmol/L (136-145)
[2017-10-09] MEDS ORDERED: Chloraseptic Spray 180 ml Bottle PO PRN (08:41)
[2017-10-09] MEDS ORDERED: Loperamide HCl 2 MG CAP PO PRN (08:41)
[2017-10-09] MEDS ORDERED: hydrALAZINE 20 MG/ML VIAL SLOW IVP PRN (08:41)
[2017-10-09] MEDS ORDERED: Loratadine 10 MG TAB PO PRN (08:41)
[2017-10-09] MEDS ORDERED: Diabetic Tussin 200 MG/10 ML UDCUP PO PRN (08:41)
[2017-10-09] MEDS ORDERED: Sodium Chloride 0.65% Nasal 44 ML BOT EA NARE PRN (08:41)
[2017-10-09] MEDS ORDERED: Eucerin (Mineral Oil/Petrolatum,White) 30 gm Jar TOP PRN (08:41)
[2017-10-09] MEDS ORDERED: Artificial Tears 18 DROP/0.9 ML EA EYE PRN (08:41)
[2017-10-09] MEDS ORDERED: Ondansetron ODT 4 MG TAB PO PRN (08:41)
[2017-10-09] MEDS ORDERED: Milk Of Magnesia 30 ML UDCUP PO PRN (08:41)
[2017-10-09] MEDS: Ferrous Sulfate 325 MG TAB PO SCH (09:19)
[2017-10-09] MEDS: Multivitamin W/ Minerals 1 TAB PO SCH (09:20)
[2017-10-09] MEDS: Docusate 100 MG CAP PO SCH ×2 (09:20→19:58)
[2017-10-09] MEDS: Carvedilol 3.125 MG TAB PO SCH ×2 (09:20→19:58)
[2017-10-09] MEDS: Tamsulosin HCl 0.4 MG CAP PO SCH (09:20)
[2017-10-09] MEDS: Folic Acid 1 MG TAB PO SCH (09:20)
[2017-10-09] MEDS: Lisinopril 2.5 MG TAB PO SCH (09:20)
[2017-10-09] MEDS: Enoxaparin Sodium 40 MG/0.4 ML SYRINGE SC SCH (09:21)
[2017-10-09] MEDS: Furosemide 40 MG/4 ML VIAL SLOW IVP SCH ×2 (10:01→19:57)
[2017-10-09] MEDS: Cefepime 1 GM in Sodium Chloride 0.9% 100 ML IVPB SCH ×2 (10:01→19:57)
--- NOTE | 2017-10-09 10:25 | PRG ---
DATE OF SERVICE: 10/09/2017 The patient is doing better. He had no acute complaints. PHYSICAL EXAMINATION: VITAL SIGNS: His temperature is 98.1, pulse 96, respiration 22, O2 sat 95%, blood pressure 136/75. Intake for 24 hours 540, output 1950. HEENT: Unremarkable. NECK: No JVD. LUNGS: Fairly clear anteriorly. CARDIOVASCULAR: S1 and S2 regular. ABDOMEN: Soft. EXTREMITIES: No edema. LABORATORY DATA: White blood cell count 6.9, hematocrit 32.9, platelet count 222. Sodium 137, potas sium 3.7, chloride 105, CO2 24, BUN 17, creatinine 0.5, glucose 102. ASSESSMENT: 1. Congestive heart failure - acute systolic. 2. Pleural effusions. 3. Acute hypoxic respiratory failure. PLAN: 1. Recommend continued diuresis. 2. Recommend Cardiology input regarding management of his cardiac medications. 3. Would stop antibiotics tomorrow if cultures are negative, unless they are needed for management o f his decubitus ulcers.
[2017-10-09] MEDS: Budesonide 0.5 MG/2 ML NEB INH SCH ×2 (10:50→19:25)
[2017-10-09] MEDS: Arformoterol 15 MCG/2 ML NEB NEB SCH ×2 (11:05→19:22)
--- NOTE | 2017-10-09 14:21 | PDOC.PN ---
- Subjective Encounter Start Date: 10/09/17 Encounter Start Time: 08:45 -: old records requested/rev Patient seen and examined for chf exacerbation. No new complaints. No overnight events - Objective Resuscitation Status: Resuscitation Status FULL:Full Resuscitation MAR Reviewed: Yes Vital Signs & Weight: Vital Signs (12 hours) Temp Pulse Pulse Pulse Resp BP BP 10/09/17 11:48 97.6 F 89 18 10/09/17 11:08 80 77 124/70 137/72 10/09/17 11:05 86 12 10/09/17 10:53 10/09/17 10:50 86 12 10/09/17 09:14 98.4 F 98 17 10/09/17 08:28 96 10/09/17 03:51 98.1 F 105 H 22 H 10/09/17 02:56 BP Pulse Ox Pulse Ox Pulse Ox 10/09/17 11:48 126/66 96 10/09/17 11:08 98 95 10/09/17 11:05 10/09/17 10:53 99 10/09/17 10:50 10/09/17 09:14 118/61 97 10/09/17 08:28 136/75 95 10/09/17 03:51 123/75 94 L 10/09/17 02:56 94 L Weight Admit Weight 152 lb 1.903 oz Weight 151 lb 8 oz I&O: 10/08/17 10/09/17 10/10/17 06:59 06:59 06:59 Intake Total 540 Output Total 1950 Balance -1410 Result Diagrams: 10/09/17 04:45 10/09/17 04:45 Radiology Reviewed by me: Yes EKG Reviewed by me: Yes Phys Exam - Physical Examination Constitutional: NAD HEENT: PERRLA, moist MMs, sclera anicteric Neck: no JVD, supple Respiratory: no wheezing, no rhonchi reduced air entry at base Cardiovascular: RRR, no significant murmur, no rub Gastrointestinal: soft, non-tender, no distention, positive bowel sounds Musculoskeletal: pulses present, edema present Neurological: non-focal, normal sensation, moves all 4 limbs Lymphatic: no nodes Psychiatric: normal affect Skin: normal turgor Deviation from normal: decubitus ulcer with dressing present on admission, see WCT note Dx/Plan (1) Acute on chronic diastolic ACC/AHA stage C congestive heart failure Code(s): I50.33 - ACUTE ON CHRONIC DIASTOLIC (CONGESTIVE) HEART FAILURE Status : Acute (2) Anasarca Code(s): R60.1 - GENERALIZED EDEMA Status: Acute (3) Bilateral pleural effusion Code(s): J90 - PLEURAL EFFUSION, NOT ELSEWHERE CLASSIFIED Status: Acute (4) Demand ischemia Code(s): I24.8 - OTHER FORMS OF ACUTE ISCHEMIC HEART DISEASE Status: Acute (5) Encephalopathy acute Code(s): G93.40 - ENCEPHALOPATHY, UNSPECIFIED Status: Acute (6) Pneumonia Code(s): J18.9 - PNEUMONIA, UNSPECIFIED ORGANISM Status: Acute (7) Anemia, normocytic normochromic Code(s): D64.9 - ANEMIA, UNSPECIFIED Status: Chronic (8) BPH (benign prostatic hyperplasia) Code(s): N40.0 - BENIGN PROSTATIC HYPERPLASIA WITHOUT LOWER URINRY TRACT SYMP Status: Chronic (9) COPD (chronic obstructive pulmonary disease) Status: Chronic (10) Decubitus ulcer of ankle, stage 4 Code(s): L89.504 - PRESSURE ULCER OF UNSPECIFIED ANKLE, STAGE 4 Status: Chronic (11) Decubitus ulcer of sacral region, stage 4 Code(s): L89.154 - PRESSURE ULCER OF SACRAL REGION, STAGE 4 Status: Chronic (12) Moderate mitral regurgitation by prior echocardiogram Code(s): I34.0 - NONRHEUMATIC MITRAL (VALVE) INSUFFICIENCY Status: Chronic (13) Physical deconditioning Code(s): R53.81 - OTHER MALAISE Status: Chronic - Plan cont current plan of care, continue antibiotics, PT/OT, social professionals, respiratory therapy * continue lasix and diuresis * monitor oxygen saturation * currently on empiric antibiotics for suspected pneumonia cefepime and levaquin * medication reviewed as below * symptomatic treatment * wound care * add supplement pau bid, ensure bid * monitor labs. Review of Systems - Review of Systems Constitutional: weakness. negative: fever, chills, sweats, malaise, other Eyes: negative: Pain, Vision Change, Conjunctivae Inflammation, Eyelid Inflammation, Redness, Other ENT: negative: Ear Pain, Ear Discharge, Nose Pain, Nose Discharge, Nose Congestion, Mouth Pain, Mouth Swelling, Throat Pain, Throat Swelling, Other Respiratory: Cough, Shortness of Breath, SOB with Excertion. negative: Dry, Hemoptysis, Pleuritic Pain, Sputum, Wheezing Cardiovascular: negative: chest pain, palpitations, orthopnea, paroxysmal nocturnal dyspnea, edema, light headedness, other Gastrointestinal: negative: Nausea, Vomiting, Abdominal Pain, Diarrhea, Constipation, Melena, Hematochezia, Other Genitourinary: negative: Dysuria, Frequency, Incontinence, Hematuria, Retention , Other Musculoskeletal: negative: Neck Pain, Shoulder Pain, Arm Pain, Back Pain, Hand Pain, Leg Pain, Foot Pain, Other - Medications/Allergies Allergies/Adverse Reactions: Allergies Allergy/AdvReac Type Severity Reaction Status Date / Time No Known Allergies Allergy Verified 10/08/17 14:37 Medications: Current Medications Acetaminophen (Tylenol) 650 mg PO Q4H PRN PRN Reason: Headache/Fever or Pain Hydrocodone Bitart/Acetaminophen ([place] 5/325) 1 tab PO Q4H PRN PRN Reason: Moderate Pain (4-6) Last Admin: 10/08/17 21:06 Dose: 1 tab Al Hydroxide/Mg Hydroxide (Maalox) 30 ml PO Q6H PRN PRN Reason: Heartburn or Indigestion Albuterol/Ipratropium (Duoneb) 3 ml NEB [id number] [facility] Last Admin: 10/09/17 10:50 Dose: 3 ml Arformoterol Tartrate (Brovana) 15 mcg NEB BID-RT [facility] Last Admin: 10/09/17 11:05 Dose: 15 mcg Artificial Tears (Tears Naturale) 0 drop EA EYE PRN PRN PRN Reason: Dry Eyes Aspirin (Aspirin Chewable) 81 mg PO DAILY [facility] Last Admin: 10/09/17 09:20 Dose: 81 mg Budesonide (Pulmicort Neb Solution) 0.5 mg INH BID-RT [facility] Last Admin: 10/09/17 10:50 Dose: 0.5 mg Carvedilol (Coreg) 3.125 mg PO BID [facility] Last Admin: 10/09/17 09:20 Dose: 3.125 mg Docusate Sodium (Colace) 100 mg PO BID [facility] Last Admin: 10/09/17 09:20 Dose: 100 mg Enoxaparin Sodium (Lovenox) 40 mg SC 0900 [facility] Last Admin: 10/09/17 09:21 Dose: 40 mg Ferrous Sulfate (Feosol) 325 mg PO QA-[facility] Last Admin: 10/09/17 09:19 Dose: 325 mg Folic Acid (Folvite) 1 mg PO DAILY [facility] Last Admin: 10/09/17 09:20 Dose: 1 mg Furosemide (Lasix) 40 mg SLOW IVP Q12HR [facility] Last Admin: 10/09/17 10:01 Dose: 40 mg Guaifenesin (Robitussin Sf) 200 mg PO Q4H PRN PRN Reason: Cough Guaifenesin/Dextromethorphan (Robitussin Dm) 15 ml PO Q4H PRN PRN Reason: Cough Hydralazine HCl (Apresoline) 10 mg SLOW IVP Q4H PRN PRN Reason: Systolic BP > 180 Cefepime HCl 1 gm/ Sodium (Chloride) 100 mls @ 200 mls/hr IVPB Q12HR [facility] Last Admin: 10/09/17 10:01 Dose: 100 mls Vancomycin HCl 1.25 gm/ Sodium (Chloride) 250 mls @ 166.667 mls/hr IVPB 0400, 1600 [facility] Last Admin: 10/09/17 04:25 Dose: 250 mls Iron/Minerals/Multivitamins (Theragran M) 1 tab PO DAILY [facility] Last Admin: 10/09/17 09:20 Dose: 1 tab Lisinopril (Zestril) 2.5 mg PO DAILY [facility] Last Admin: 10/09/17 09:20 Dose: 2.5 mg Loperamide HCl (Imodium) 2 mg PO PRN PRN PRN Reason: Diarrhea/Loose Stools Loratadine (Claritin) 10 mg PO DAILYPRN PRN PRN Reason: Sinus Symptoms Lorazepam (Ativan) 0.5 mg PO Q8H PRN PRN Reason: Anxiety/Agitation Magnesium Hydroxide (Milk Of Magnesium) 30 ml PO DAILYPRN PRN PRN Reason: Constipation Mineral Oil/White Petrolatum (Eucerin Cream) 0 gm TOP BIDPRN PRN PRN Reason: Dry Skin Miscellaneous Medication (Pharmacy To Dose) 0 each IVPB ASDIR [facility] Ondansetron HCl (Zofran) 4 mg IVP Q6H PRN PRN Reason: Nausea/Vomiting Ondansetron HCl (Zofran Odt) 4 mg PO Q6H PRN PRN Reason: Nausea/Vomiting Pantoprazole Sodium (Protonix) 40 mg PO DAILY [facility] Last Admin: 10/09/17 09:20 Dose: 40 mg Phenol (Chloraseptic [place] 180 Ml Bot) 0 ml PO PRN PRN PRN Reason: Sore Throat Senna (Senokot) 2 tab PO HSPRN PRN PRN Reason: Constipation Sodium Chloride (Flush - Normal Saline) 10 ml IVF Q12HR [facility] Last Admin: 10/09/17 09:21 Dose: 10 ml Sodium Chloride (Flush - Normal Saline) 10 ml IVF PRN PRN PRN Reason: Saline Flush Sodium Chloride ([place] Nasal [place] 0.65%) 0 ml EA NARE QIDPRN PRN PRN Reason: Nasal Congestion Tamsulosin HCl (Flomax) 0.4 mg PO DAILY [facility] Last Admin: 10/09/17 09:20 Dose: 0.4 mg Tramadol HCl (Ultram) 50 mg PO Q6H PRN PRN Reason: Pain
[2017-10-09 16:28] LABS: Vancomycin, Trough 19.5 ug/mL
[2017-10-10] MEDS ORDERED: Vancomycin HCl 1 GM in Premix Bag 1 BAG IVPB SCH (04:00)
[2017-10-10 05:09] LABS: #Eosinphils 0.2 thou/uL (0.0-0.7); #Lymphocytes 1.7 thou/uL (1.20-3.40); #Monocytes 0.6 thou/uL (0.11-0.59); %Basophils 0.3 % (0.0-1.0); %Eosinophils 2.9 % (0.0-10.0); %Lymphocytes 22.3 % (21.0-51.0); %Monocytes 8.3 % (0.0-10.0); %Neutrophils 66.3 % (42.0-75.0); Hemoglobin 9.3 g/dL (14.0-18.0); Mean Corpuscular HGB CONC 31.7 g/dL (32.0-36.0); Mean Corpuscular Hemoglobin 30.1 pg (27.0-31.0); Mean Platelet Volume 7.1 fL (7.4-10.4); Platelet Count 240 thou/uL (130-400); RBC Distribution Width 17.7 % (11.5-14.5); Red Blood Cell (RBC) Count 3.09 mill/uL (4.70-6.10); White Blood Cell (WBC) Count 7.5 thou/uL (4.8-10.8)
[2017-10-10 05:21] LABS: Anion Gap 6 mmol/L (10-20); BUN (Urea Nitrogen) 17 mg/dL (8.4-25.7); Calc. Creatinine Clearance 111 mL/min (70-130); Calcium 7.3 mg/dL (7.8-10.44); Carbon Dioxide 33 mmol/L (23-31); Chloride 102 mmol/L (98-107); Estimated GFR-MDRD Greater than 90; Glucose 99 mg/dL (83-110); Magnesium 1.2 mg/dL (1.6-2.6); Phosphorus 3.3 mg/dL (2.3-4.7); Potassium 3.4 mmol/L (3.5-5.1); Sodium 138 mmol/L (136-145)
[2017-10-10] MEDS ORDERED: Magnesium Sulfate 3 GM in Sodium Chloride 0.9% 100 ML IVPB SCH (06:30)
[2017-10-10] MEDS ORDERED: Potassium Chloride 20 MEQ TAB PO SCH (06:30)
[2017-10-10] MEDS: Budesonide 0.5 MG/2 ML NEB INH SCH ×2 (07:21→19:53)
[2017-10-10] MEDS: Arformoterol 15 MCG/2 ML NEB NEB SCH ×2 (07:22→19:54)
[2017-10-10] MEDS: Cefepime 1 GM in Sodium Chloride 0.9% 100 ML IVPB SCH (08:46)
[2017-10-10] MEDS: Enoxaparin Sodium 40 MG/0.4 ML SYRINGE SC SCH (08:52)
[2017-10-10] MEDS: Multivitamin W/ Minerals 1 TAB PO SCH (08:53)
[2017-10-10] MEDS: Tamsulosin HCl 0.4 MG CAP PO SCH (08:53)
[2017-10-10] MEDS: Lisinopril 2.5 MG TAB PO SCH (08:53)
[2017-10-10] MEDS: Carvedilol 3.125 MG TAB PO SCH ×2 (08:54→20:43)
[2017-10-10] MEDS: Ferrous Sulfate 325 MG TAB PO SCH (08:54)
[2017-10-10] MEDS: Furosemide 40 MG/4 ML VIAL SLOW IVP SCH ×2 (08:54→09:01)
[2017-10-10] MEDS: Folic Acid 1 MG TAB PO SCH (08:54)
[2017-10-10] MEDS: Docusate 100 MG CAP PO SCH ×2 (08:54→20:42)
[2017-10-10] MEDS ORDERED: Cefdinir 300 MG CAP PO SCH (09:00)
--- NOTE | 2017-10-10 10:37 | PDOC.PN ---
- Subjective Encounter Start Date: 10/10/17 Encounter Start Time: 07:45 Patient seen and examined for chf. No new complaints. No overnight events - Objective Resuscitation Status: Resuscitation Status FULL:Full Resuscitation MAR Reviewed: Yes Vital Signs & Weight: Vital Signs (12 hours) Temp Pulse Resp BP Pulse Ox 10/10/17 08:23 97.8 F 81 16 128/66 97 10/10/17 07:20 74 15 98 10/10/17 04:27 96 10/10/17 04:00 97.8 F 60 18 129/66 96 10/10/17 03:45 96 10/09/17 23:15 96 Weight Admit Weight 152 lb 1.903 oz Weight 147 lb 14.4 oz I&O: 10/09/17 10/10/17 10/11/17 06:59 06:59 06:59 Intake Total 540 2524 Output Total 1950 5275 Balance -3322 -3996 Result Diagrams: 10/10/17 04:46 10/10/17 04:46 EKG Reviewed by me: Yes (nsr) Phys Exam - Physical Examination Constitutional: NAD HEENT: PERRLA, moist MMs, sclera anicteric Neck: no JVD, supple Respiratory: no wheezing, no rhonchi reduced air entry at base, coarse sound Cardiovascular: RRR, no significant murmur, no rub Gastrointestinal: soft, non-tender, no distention, positive bowel sounds Musculoskeletal: no edema, pulses present decubitus ulcer with dressing Neurological: moves all 4 limbs Lymphatic: no nodes Psychiatric: normal affect Skin: no rash, normal turgor Dx/Plan (1) Acute on chronic diastolic ACC/AHA stage C congestive heart failure Code(s): I50.33 - ACUTE ON CHRONIC DIASTOLIC (CONGESTIVE) HEART FAILURE Status : Acute (2) Anasarca Code(s): R60.1 - GENERALIZED EDEMA Status: Acute (3) Bilateral pleural effusion Code(s): J90 - PLEURAL EFFUSION, NOT ELSEWHERE CLASSIFIED Status: Acute (4) Demand ischemia Code(s): I24.8 - OTHER FORMS OF ACUTE ISCHEMIC HEART DISEASE Status: Acute (5) Encephalopathy acute Code(s): G93.40 - ENCEPHALOPATHY, UNSPECIFIED Status: Acute (6) Pneumonia Code(s): J18.9 - PNEUMONIA, UNSPECIFIED ORGANISM Status: Acute (7) Anemia, normocytic normochromic Code(s): D64.9 - ANEMIA, UNSPECIFIED Status: Chronic (8) BPH (benign prostatic hyperplasia) Code(s): N40.0 - BENIGN PROSTATIC HYPERPLASIA WITHOUT LOWER URINRY TRACT SYMP Status: Chronic (9) COPD (chronic obstructive pulmonary disease) Status: Chronic (10) Decubitus ulcer of ankle, stage 4 Code(s): L89.504 - PRESSURE ULCER OF UNSPECIFIED ANKLE, STAGE 4 Status: Chronic (11) Decubitus ulcer of sacral region, stage 4 Code(s): L89.154 - PRESSURE ULCER OF SACRAL REGION, STAGE 4 Status: Chronic (12) Moderate mitral regurgitation by prior echocardiogram Code(s): I34.0 - NONRHEUMATIC MITRAL (VALVE) INSUFFICIENCY Status: Chronic (13) Physical deconditioning Code(s): R53.81 - OTHER MALAISE Status: Chronic (14) Hypokalemia Code(s): E87.6 - HYPOKALEMIA Status: Acute (15) Hypomagnesemia Code(s): E83.42 - HYPOMAGNESEMIA Status: Acute - Plan cont current plan of care, continue antibiotics, 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 * replace magnesium and potassium today Review of Systems - Review of Systems ENT: negative: Ear Pain, Ear Discharge, Nose Pain, Nose Discharge, Nose Congestion, Mouth Pain, Mouth Swelling, Throat Pain, Throat Swelling, Other Respiratory: negative: Cough, Dry, Shortness of Breath, Hemoptysis, SOB with Excertion, Pleuritic Pain, Sputum, Wheezing Cardiovascular: negative: chest pain, palpitations, orthopnea, paroxysmal nocturnal dyspnea, edema, light headedness, other Gastrointestinal: negative: Nausea, Vomiting, Abdominal Pain, Diarrhea, Constipation, Melena, Hematochezia, Other Genitourinary: negative: Dysuria, Frequency, Incontinence, Hematuria, Retention , Other Musculoskeletal: negative: Neck Pain, Shoulder Pain, Arm Pain, Back Pain, Hand Pain, Leg Pain, Foot Pain, Other Skin: negative: Rash, Lesions, Avery, Bruising, Other - Medications/Allergies Allergies/Adverse Reactions: Allergies Allergy/AdvReac Type Severity Reaction Status Date / Time No Known Allergies Allergy Verified 10/08/17 14:37 Medications: Current Medications Acetaminophen (Tylenol) 650 mg PO Q4H PRN PRN Reason: Headache/Fever or Pain Hydrocodone Bitart/Acetaminophen ([place] 5/325) 1 tab PO Q4H PRN PRN Reason: Moderate Pain (4-6) Last Admin: 10/08/17 21:06 Dose: 1 tab Al Hydroxide/Mg Hydroxide (Maalox) 30 ml PO Q6H PRN PRN Reason: Heartburn or Indigestion Albuterol/Ipratropium (Duoneb) 3 ml NEB [id number] [facility] Last Admin: 10/10/17 07:20 Dose: 3 ml Arformoterol Tartrate (Brovana) 15 mcg NEB BID-RT [facility] Last Admin: 10/10/17 07:22 Dose: 15 mcg Artificial Tears (Tears Naturale) 0 drop EA EYE PRN PRN PRN Reason: Dry Eyes Aspirin (Aspirin Chewable) 81 mg PO DAILY [facility] Last Admin: 10/10/17 08:54 Dose: 81 mg Budesonide (Pulmicort Neb Solution) 0.5 mg INH BID-RT [facility] Last Admin: 10/10/17 07:21 Dose: 0.5 mg Carvedilol (Coreg) 3.125 mg PO BID [facility] Last Admin: 10/10/17 08:54 Dose: 3.125 mg Cefdinir (Omnicef) 600 mg PO 1100 [facility] Docusate Sodium (Colace) 100 mg PO BID [facility] Last Admin: 10/10/17 08:54 Dose: 100 mg Enoxaparin Sodium (Lovenox) 40 mg SC 0900 [facility] Last Admin: 10/10/17 08:52 Dose: 40 mg Ferrous Sulfate (Feosol) 325 mg PO QA-[facility] Last Admin: 10/10/17 08:54 Dose: 325 mg Folic Acid (Folvite) 1 mg PO DAILY [facility] Last Admin: 10/10/17 08:54 Dose: 1 mg Furosemide (Lasix) 40 mg SLOW IVP DAILY [facility] Last Admin: 10/10/17 09:01 Dose: 40 mg Guaifenesin (Robitussin Sf) 200 mg PO Q4H PRN PRN Reason: Cough Guaifenesin/Dextromethorphan (Robitussin Dm) 15 ml PO Q4H PRN PRN Reason: Cough Hydralazine HCl (Apresoline) 10 mg SLOW IVP Q4H PRN PRN Reason: Systolic BP > 180 Magnesium Sulfate 3 gm/ Sodium (Chloride) 106 mls @ 100 mls/hr IVPB NOW [facility] Stop: 10/10/17 12:00 Last Admin: 10/10/17 08:46 Dose: 106 mls Iron/Minerals/Multivitamins (Theragran M) 1 tab PO DAILY [facility] Last Admin: 10/10/17 08:53 Dose: 1 tab Lisinopril (Zestril) 2.5 mg PO DAILY [facility] Last Admin: 10/10/17 08:53 Dose: 2.5 mg Loperamide HCl (Imodium) 2 mg PO PRN PRN PRN Reason: Diarrhea/Loose Stools Loratadine (Claritin) 10 mg PO DAILYPRN PRN PRN Reason: Sinus Symptoms Lorazepam (Ativan) 0.5 mg PO Q8H PRN PRN Reason: Anxiety/Agitation Magnesium Hydroxide (Milk Of Magnesium) 30 ml PO DAILYPRN PRN PRN Reason: Constipation Mineral Oil/White Petrolatum (Eucerin Cream) 0 gm TOP BIDPRN PRN PRN Reason: Dry Skin Ondansetron HCl (Zofran) 4 mg IVP Q6H PRN PRN Reason: Nausea/Vomiting Ondansetron HCl (Zofran Odt) 4 mg PO Q6H PRN PRN Reason: Nausea/Vomiting Pantoprazole Sodium (Protonix) 40 mg PO DAILY [facility] Last Admin: 10/10/17 08:53 Dose: 40 mg Phenol (Chloraseptic [place] 180 Ml Bot) 0 ml PO PRN PRN PRN Reason: Sore Throat Senna (Senokot) 2 tab PO HSPRN PRN PRN Reason: Constipation Sodium Chloride (Flush - Normal Saline) 10 ml IVF Q12HR [facility] Last Admin: 10/10/17 08:49 Dose: 10 ml Sodium Chloride (Flush - Normal Saline) 10 ml IVF PRN PRN PRN Reason: Saline Flush Sodium Chloride ([place] Nasal [place] 0.65%) 0 ml EA NARE QIDPRN PRN PRN Reason: Nasal Congestion Tamsulosin HCl (Flomax) 0.4 mg PO DAILY [facility] Last Admin: 10/10/17 08:53 Dose: 0.4 mg Tramadol HCl (Ultram) 50 mg PO Q6H PRN PRN Reason: Pain
[2017-10-10] MEDS: Cefdinir 300 MG CAP PO SCH (11:17)
--- NOTE | 2017-10-10 11:57 | PRG ---
DATE OF SERVICE: 10/10/2017 SUBJECTIVE: I believe he is probably experiencing periods of confusion as the patient has a sitter i n place. PHYSICAL EXAMINATION: GENERAL: He is awake, conversant, not always appropriate. VITAL SIGNS: Temperature 97.8, pulse 81, respiration rate 16, O2 sat 97% on 2 liters, blood pressure 128/66. HEENT: Unremarkable. NECK: No JVD. LUNGS: Diminished breath sounds at both bases. CARDIAC: S1 and S2 regular. ABDOMEN: Soft. EXTREMITIES: No edema. LABORATORY DATA: White blood cell count 7.5, hematocrit 29.3, and platelet count 240. Sodium 138, p otassium 3.4, chloride 102, CO2 33, BUN 17, creatinine 0.5, glucose 99. ASSESSMENT: 1. Congestive heart failure with bilateral effusions. 2. Acute hypoxic respiratory failure. 3. Failure to thrive. 4. Doubt this is pneumonia. RECOMMENDATIONS: I would go ahead and change him over to oral antibiotics. I will decrease his Lasi x dose, mainly this is a placement issue as I do not think he can take care of himself at home.
[2017-10-11] MEDS: Budesonide 0.5 MG/2 ML NEB INH SCH ×2 (07:02→18:53)
[2017-10-11] MEDS: Arformoterol 15 MCG/2 ML NEB NEB SCH ×2 (07:02→18:52)
--- NOTE | 2017-10-11 09:11 | PRG ---
DATE OF SERVICE: 10/11/2017 The patient is in good spirits today. PHYSICAL EXAMINATION: VITAL SIGNS: Temperature 97.9, pulse 80, respirations 12, O2 sat 100% on 3 liters, blood pressure 14 2/79. HEENT: Unremarkable. NECK: No JVD. LUNGS: Clear without wheezing. CARDIAC: S1 and S2 regular. ABDOMEN: Soft. EXTREMITIES: Multiple decubitus ulcers throughout. LABORATORY: No new labs were done today. ASSESSMENT: 1. Congestive heart failure with extensive pulmonary edema which is better after diuresis. 2. Extensive decubiti ulcers. 3. Failure to thrive. 4. Probably severe underlying dementia. PLAN: He continues on oral antibiotics. He probably needs his labs rechecked tomorrow to make sure that he is not being overly diuresed.
[2017-10-11] MEDS: Enoxaparin Sodium 40 MG/0.4 ML SYRINGE SC SCH (09:27)
[2017-10-11] MEDS: Ferrous Sulfate 325 MG TAB PO SCH (09:28)
[2017-10-11] MEDS: Lisinopril 2.5 MG TAB PO SCH (09:29)
[2017-10-11] MEDS: Multivitamin W/ Minerals 1 TAB PO SCH (09:29)
[2017-10-11] MEDS: Folic Acid 1 MG TAB PO SCH (09:30)
[2017-10-11] MEDS: Furosemide 40 MG/4 ML VIAL SLOW IVP SCH (09:30)
[2017-10-11] MEDS: Tamsulosin HCl 0.4 MG CAP PO SCH (09:31)
[2017-10-11] MEDS: Docusate 100 MG CAP PO SCH ×2 (09:31→20:51)
[2017-10-11] MEDS: Carvedilol 3.125 MG TAB PO SCH ×2 (09:31→20:51)
--- NOTE | 2017-10-11 10:19 | PDOC.PN ---
- Subjective Encounter Start Date: 10/11/17 Encounter Start Time: 09:00 Patient seen and examined for chf and pneumonia. No new complaints. No overnight events - Objective Resuscitation Status: Resuscitation Status FULL:Full Resuscitation MAR Reviewed: Yes Vital Signs & Weight: Vital Signs (12 hours) Temp Pulse Resp BP BP BP Pulse Ox 10/11/17 09:29 80 142/79 H 10/11/17 08:00 97.9 F 80 12 142/79 H 100 10/11/17 07:00 87 14 98 10/11/17 04:18 98.3 F 68 18 130/72 94 L 10/11/17 02:42 96 10/11/17 02:03 81 12 10/11/17 00:00 97.5 F L 85 17 112/55 L 95 10/10/17 22:45 86 12 Weight Admit Weight 152 lb 1.903 oz Weight 144 lb 12.8 oz I&O: 10/10/17 10/11/17 10/12/17 06:59 06:59 06:59 Intake Total 2524 1520 Output Total 5275 3050 Balance -2751 -1530 Result Diagrams: 10/10/17 04:46 10/10/17 04:46 EKG Reviewed by me: Yes (nsr) Phys Exam - Physical Examination Constitutional: NAD HEENT: PERRLA, moist MMs, sclera anicteric Neck: no JVD, supple Respiratory: no wheezing, no rales, no rhonchi reduced air entry at base Cardiovascular: RRR, no significant murmur, no rub Gastrointestinal: soft, non-tender, no distention, positive bowel sounds Musculoskeletal: no edema, pulses present Neurological: non-focal Lymphatic: no nodes Psychiatric: normal affect Skin: normal turgor Deviation from normal: pressure ulcer with dressing Dx/Plan (1) Acute on chronic diastolic ACC/AHA stage C congestive heart failure Code(s): I50.33 - ACUTE ON CHRONIC DIASTOLIC (CONGESTIVE) HEART FAILURE Status : Acute (2) Anasarca Code(s): R60.1 - GENERALIZED EDEMA Status: Acute (3) Bilateral pleural effusion Code(s): J90 - PLEURAL EFFUSION, NOT ELSEWHERE CLASSIFIED Status: Acute (4) Demand ischemia Code(s): I24.8 - OTHER FORMS OF ACUTE ISCHEMIC HEART DISEASE Status: Acute (5) Encephalopathy acute Code(s): G93.40 - ENCEPHALOPATHY, UNSPECIFIED Status: Acute (6) Pneumonia Code(s): J18.9 - PNEUMONIA, UNSPECIFIED ORGANISM Status: Acute (7) Anemia, normocytic normochromic Code(s): D64.9 - ANEMIA, UNSPECIFIED Status: Chronic (8) BPH (benign prostatic hyperplasia) Code(s): N40.0 - BENIGN PROSTATIC HYPERPLASIA WITHOUT LOWER URINRY TRACT SYMP Status: Chronic (9) COPD (chronic obstructive pulmonary disease) Status: Chronic (10) Decubitus ulcer of ankle, stage 4 Code(s): L89.504 - PRESSURE ULCER OF UNSPECIFIED ANKLE, STAGE 4 Status: Chronic (11) Decubitus ulcer of sacral region, stage 4 Code(s): L89.154 - PRESSURE ULCER OF SACRAL REGION, STAGE 4 Status: Chronic (12) Moderate mitral regurgitation by prior echocardiogram Code(s): I34.0 - NONRHEUMATIC MITRAL (VALVE) INSUFFICIENCY Status: Chronic (13) Physical deconditioning Code(s): R53.81 - OTHER MALAISE Status: Chronic - Plan cont current plan of care, continue antibiotics, respiratory therapy * continue oral omnicef * continue lasix * repeat BMP, BNP tomorrow * repeat chest xray tomorrow * medication reviewed as below * symptomatic treatment. * wound care * nutritional support Review of Systems - Review of Systems Eyes: negative: Pain, Vision Change, Conjunctivae Inflammation, Eyelid Inflammation, Redness, Other ENT: negative: Ear Pain, Ear Discharge, Nose Pain, Nose Discharge, Nose Congestion, Mouth Pain, Mouth Swelling, Throat Pain, Throat Swelling, Other Respiratory: negative: Cough, Dry, Shortness of Breath, Hemoptysis, SOB with Excertion, Pleuritic Pain, Sputum, Wheezing Cardiovascular: negative: chest pain, palpitations, orthopnea, paroxysmal nocturnal dyspnea, edema, light headedness, other Gastrointestinal: negative: Nausea, Vomiting, Abdominal Pain, Diarrhea, Constipation, Melena, Hematochezia, Other Genitourinary: negative: Dysuria, Frequency, Incontinence, Hematuria, Retention , Other Musculoskeletal: negative: Neck Pain, Shoulder Pain, Arm Pain, Back Pain, Hand Pain, Leg Pain, Foot Pain, Other Skin: negative: Rash, Lesions, Avery, Bruising, Other - Medications/Allergies Allergies/Adverse Reactions: Allergies Allergy/AdvReac Type Severity Reaction Status Date / Time No Known Allergies Allergy Verified 10/08/17 14:37 Medications: Current Medications Acetaminophen (Tylenol) 650 mg PO Q4H PRN PRN Reason: Headache/Fever or Pain Hydrocodone Bitart/Acetaminophen ([place] 5/325) 1 tab PO Q4H PRN PRN Reason: Moderate Pain (4-6) Last Admin: 10/08/17 21:06 Dose: 1 tab Al Hydroxide/Mg Hydroxide (Maalox) 30 ml PO Q6H PRN PRN Reason: Heartburn or Indigestion Albuterol/Ipratropium (Duoneb) 3 ml NEB [id number] [facility] Last Admin: 10/11/17 07:00 Dose: 3 ml Arformoterol Tartrate (Brovana) 15 mcg NEB BID-RT [facility] Last Admin: 10/11/17 07:02 Dose: 15 mcg Artificial Tears (Tears Naturale) 0 drop EA EYE PRN PRN PRN Reason: Dry Eyes Aspirin (Aspirin Chewable) 81 mg PO DAILY [facility] Last Admin: 10/11/17 09:28 Dose: 81 mg Budesonide (Pulmicort Neb Solution) 0.5 mg INH BID-RT [facility] Last Admin: 10/11/17 07:02 Dose: 0.5 mg Carvedilol (Coreg) 3.125 mg PO BID [facility] Last Admin: 10/11/17 09:31 Dose: 3.125 mg Cefdinir (Omnicef) 600 mg PO 1100 [facility] Last Admin: 10/10/17 11:17 Dose: 600 mg Docusate Sodium (Colace) 100 mg PO BID [facility] Last Admin: 10/11/17 09:31 Dose: 100 mg Enoxaparin Sodium (Lovenox) 40 mg SC 0900 [facility] Last Admin: 10/11/17 09:27 Dose: 40 mg Ferrous Sulfate (Feosol) 325 mg PO QAM-[facility] Last Admin: 10/11/17 09:28 Dose: 325 mg Folic Acid (Folvite) 1 mg PO DAILY [facility] Last Admin: 10/11/17 09:30 Dose: 1 mg Furosemide (Lasix) 40 mg SLOW IVP DAILY [facility] Last Admin: 10/11/17 09:30 Dose: 40 mg Guaifenesin (Robitussin Sf) 200 mg PO Q4H PRN PRN Reason: Cough Guaifenesin/Dextromethorphan (Robitussin Dm) 15 ml PO Q4H PRN PRN Reason: Cough Hydralazine HCl (Apresoline) 10 mg SLOW IVP Q4H PRN PRN Reason: Systolic BP > 180 Iron/Minerals/Multivitamins (Theragran M) 1 tab PO DAILY [facility] Last Admin: 10/11/17 09:29 Dose: 1 tab Lisinopril (Zestril) 2.5 mg PO DAILY [facility] Last Admin: 10/11/17 09:29 Dose: 2.5 mg Loperamide HCl (Imodium) 2 mg PO PRN PRN PRN Reason: Diarrhea/Loose Stools Loratadine (Claritin) 10 mg PO DAILYPRN PRN PRN Reason: Sinus Symptoms Lorazepam (Ativan) 0.5 mg PO Q8H PRN PRN Reason: Anxiety/Agitation Magnesium Hydroxide (Milk Of Magnesium) 30 ml PO DAILYPRN PRN PRN Reason: Constipation Mineral Oil/White Petrolatum (Eucerin Cream) 0 gm TOP BIDPRN PRN PRN Reason: Dry Skin Ondansetron HCl (Zofran) 4 mg IVP Q6H PRN PRN Reason: Nausea/Vomiting Ondansetron HCl (Zofran Odt) 4 mg PO Q6H PRN PRN Reason: Nausea/Vomiting Pantoprazole Sodium (Protonix) 40 mg PO DAILY [facility] Last Admin: 10/11/17 09:29 Dose: 40 mg Phenol (Chloraseptic [place] 180 Ml Bot) 0 ml PO PRN PRN PRN Reason: Sore Throat Senna (Senokot) 2 tab PO HSPRN PRN PRN Reason: Constipation Sodium Chloride (Flush - Normal Saline) 10 ml IVF Q12HR [facility] Last Admin: 10/11/17 09:32 Dose: 10 ml Sodium Chloride (Flush - Normal Saline) 10 ml IVF PRN PRN PRN Reason: Saline Flush Last Admin: 10/11/17 09:31 Dose: 10 ml Sodium Chloride ([place] Nasal [place] 0.65%) 0 ml EA NARE QIDPRN PRN PRN Reason: Nasal Congestion Tamsulosin HCl (Flomax) 0.4 mg PO DAILY [facility] Last Admin: 10/11/17 09:31 Dose: 0.4 mg Tramadol HCl (Ultram) 50 mg PO Q6H PRN PRN Reason: Pain
[2017-10-11] MEDS: Cefdinir 300 MG CAP PO SCH (12:28)
[2017-10-11 13:03] VITALS: BMI 21.4
[2017-10-11] MEDS: HYDROcodone/Acetaminophen 5/325 mg Tablet PO PRN (14:44)
[2017-10-12 04:23] LABS: Anion Gap 9 mmol/L (10-20); BUN (Urea Nitrogen) 20 mg/dL (8.4-25.7); Calc. Creatinine Clearance 114 mL/min (70-130); Carbon Dioxide 30 mmol/L (23-31); Chloride 100 mmol/L (98-107); Estimated GFR-MDRD Greater than 90; Glucose 98 mg/dL (83-110); Potassium 3.6 mmol/L (3.5-5.1); Sodium 135 mmol/L (136-145)
[2017-10-12] MEDS: Budesonide 0.5 MG/2 ML NEB INH SCH ×2 (07:13→18:21)
[2017-10-12] MEDS: Arformoterol 15 MCG/2 ML NEB NEB SCH ×2 (07:13→18:21)
--- NOTE | 2017-10-12 09:20 | RAD ---
AP VIEW OF CHEST: Date: 10/12/17 INDICATION: Effusion and pneumonia. COMPARISON: Prior exam dated 10/08/17. FINDINGS/IMPRESSION: There is some improvement in the interstitial and air space opacities. Residual opacities remain pred ominantly in the upper lobes. Small pleural effusions persist. Severe emphysema is similar. Mild card iomegaly is unchanged. No pneumothorax is evident. POS: [facility]
[2017-10-12] MEDS: Enoxaparin Sodium 40 MG/0.4 ML SYRINGE SC SCH (09:31)
[2017-10-12] MEDS: Lisinopril 2.5 MG TAB PO SCH (09:31)
[2017-10-12] MEDS: Ferrous Sulfate 325 MG TAB PO SCH (09:32)
[2017-10-12] MEDS: Multivitamin W/ Minerals 1 TAB PO SCH (09:32)
[2017-10-12] MEDS: Carvedilol 3.125 MG TAB PO SCH ×2 (09:32→20:57)
[2017-10-12] MEDS: Tamsulosin HCl 0.4 MG CAP PO SCH (09:32)
[2017-10-12] MEDS: Folic Acid 1 MG TAB PO SCH (09:33)
[2017-10-12] MEDS: Furosemide 40 MG/4 ML VIAL SLOW IVP SCH (09:33)
[2017-10-12] MEDS: Docusate 100 MG CAP PO SCH ×2 (09:33→20:57)
--- NOTE | 2017-10-12 10:00 | PDOC.PN ---
- Subjective Encounter Start Date: 10/12/17 Encounter Start Time: 07:40 Patient seen and examined for chf and pneumonia. No new complaints. No overnight events - Objective Resuscitation Status: Resuscitation Status FULL:Full Resuscitation MAR Reviewed: Yes Vital Signs & Weight: Vital Signs (12 hours) Temp Pulse Resp BP BP Pulse Ox 10/12/17 09:31 78 127/62 10/12/17 07:10 78 16 94 L 10/12/17 04:00 98.6 F 75 16 134/74 94 L 10/12/17 02:16 72 16 95 10/11/17 22:00 79 16 94 L Weight Admit Weight 152 lb 1.903 oz Weight 143 lb I&O: 10/11/17 10/12/17 10/13/17 06:59 06:59 06:59 Intake Total 1520 1050 Output Total 3050 4700 Balance -1530 -3650 Result Diagrams: 10/10/17 04:46 10/12/17 03:34 Radiology Reviewed by me: Yes (chest xray) EKG Reviewed by me: Yes (nsr) Phys Exam - Physical Examination Constitutional: NAD HEENT: PERRLA, moist MMs, sclera anicteric Neck: no JVD, supple Respiratory: no wheezing, no rales, no rhonchi Cardiovascular: RRR, no significant murmur, no rub Gastrointestinal: soft, non-tender, no distention, positive bowel sounds Musculoskeletal: no edema, pulses present Neurological: moves all 4 limbs Lymphatic: no nodes Psychiatric: normal affect Skin: no rash, normal turgor Dx/Plan (1) Acute on chronic diastolic ACC/AHA stage C congestive heart failure Code(s): I50.33 - ACUTE ON CHRONIC DIASTOLIC (CONGESTIVE) HEART FAILURE Status : Acute Comment: controlled (2) Anasarca Code(s): R60.1 - GENERALIZED EDEMA Status: Acute Comment: improved (3) Bilateral pleural effusion Code(s): J90 - PLEURAL EFFUSION, NOT ELSEWHERE CLASSIFIED Status: Acute (4) Demand ischemia Code(s): I24.8 - OTHER FORMS OF ACUTE ISCHEMIC HEART DISEASE Status: Acute (5) Encephalopathy acute Code(s): G93.40 - ENCEPHALOPATHY, UNSPECIFIED Status: Resolved (6) Pneumonia Code(s): J18.9 - PNEUMONIA, UNSPECIFIED ORGANISM Status: Acute (7) Anemia, normocytic normochromic Code(s): D64.9 - ANEMIA, UNSPECIFIED Status: Chronic (8) BPH (benign prostatic hyperplasia) Code(s): N40.0 - BENIGN PROSTATIC HYPERPLASIA WITHOUT LOWER URINRY TRACT SYMP Status: Chronic (9) COPD (chronic obstructive pulmonary disease) Status: Chronic (10) Decubitus ulcer of ankle, stage 4 Code(s): L89.504 - PRESSURE ULCER OF UNSPECIFIED ANKLE, STAGE 4 Status: Chronic (11) Decubitus ulcer of sacral region, stage 4 Code(s): L89.154 - PRESSURE ULCER OF SACRAL REGION, STAGE 4 Status: Chronic (12) Moderate mitral regurgitation by prior echocardiogram Code(s): I34.0 - NONRHEUMATIC MITRAL (VALVE) INSUFFICIENCY Status: Chronic (13) Physical deconditioning Code(s): R53.81 - OTHER MALAISE Status: Chronic - Plan cont current plan of care, james catheter, continue antibiotics, PT/OT, social media sr strategy manager, respiratory therapy, DVT proph w/lovenox * chest xray showed improvement, pt is also clinically feels better * he may need to continue oxygen at SNU and continue respiratory therapy at halfway * medication reviewed as below * symptomatic treatment * continue lasix and omnicef * once placement confirmed, will consider discharge * he is at high risk for readmission * prognosis guarded * continue wound care. * consider james removal on discharge Review of Systems - Review of Systems Eyes: negative: Pain, Vision Change, Conjunctivae Inflammation, Eyelid Inflammation, Redness, Other ENT: negative: Ear Pain, Ear Discharge, Nose Pain, Nose Discharge, Nose Congestion, Mouth Pain, Mouth Swelling, Throat Pain, Throat Swelling, Other Respiratory: negative: Cough, Dry, Shortness of Breath, Hemoptysis, SOB with Excertion, Pleuritic Pain, Sputum, Wheezing Cardiovascular: negative: chest pain, palpitations, orthopnea, paroxysmal nocturnal dyspnea, edema, light headedness, other Gastrointestinal: negative: Nausea, Vomiting, Abdominal Pain, Diarrhea, Constipation, Melena, Hematochezia, Other Genitourinary: negative: Dysuria, Frequency, Incontinence, Hematuria, Retention , Other Musculoskeletal: negative: Neck Pain, Shoulder Pain, Arm Pain, Back Pain, Hand Pain, Leg Pain, Foot Pain, Other Skin: negative: Rash, Lesions, Avery, Bruising, Other - Medications/Allergies Allergies/Adverse Reactions: Allergies Allergy/AdvReac Type Severity Reaction Status Date / Time No Known Allergies Allergy Verified 10/08/17 14:37 Medications: Current Medications Acetaminophen (Tylenol) 650 mg PO Q4H PRN PRN Reason: Headache/Fever or Pain Hydrocodone Bitart/Acetaminophen ([place] 5/325) 1 tab PO Q4H PRN PRN Reason: Moderate Pain (4-6) Last Admin: 10/11/17 14:44 Dose: 1 tab Al Hydroxide/Mg Hydroxide (Maalox) 30 ml PO Q6H PRN PRN Reason: Heartburn or Indigestion Albuterol/Ipratropium (Duoneb) 3 ml NEB [id number] [facility] Last Admin: 10/12/17 07:10 Dose: 3 ml Arformoterol Tartrate (Brovana) 15 mcg NEB BID-RT [facility] Last Admin: 10/12/17 07:13 Dose: 15 mcg Artificial Tears (Tears Naturale) 0 drop EA EYE PRN PRN PRN Reason: Dry Eyes Aspirin (Aspirin Chewable) 81 mg PO DAILY [facility] Last Admin: 10/12/17 09:33 Dose: 81 mg Budesonide (Pulmicort Neb Solution) 0.5 mg INH BID-RT [facility] Last Admin: 10/12/17 07:13 Dose: 0.5 mg Carvedilol (Coreg) 3.125 mg PO BID [facility] Last Admin: 10/12/17 09:32 Dose: 3.125 mg Cefdinir (Omnicef) 600 mg PO 1100 [facility] Last Admin: 10/11/17 12:28 Dose: 600 mg Docusate Sodium (Colace) 100 mg PO BID [facility] Last Admin: 10/12/17 09:33 Dose: 100 mg Enoxaparin Sodium (Lovenox) 40 mg SC 0900 [facility] Last Admin: 10/12/17 09:31 Dose: 40 mg Ferrous Sulfate (Feosol) 325 mg PO QAM-[facility] Last Admin: 10/12/17 09:32 Dose: 325 mg Folic Acid (Folvite) 1 mg PO DAILY [facility] Last Admin: 10/12/17 09:33 Dose: 1 mg Furosemide (Lasix) 40 mg SLOW IVP DAILY [facility] Last Admin: 10/12/17 09:33 Dose: 40 mg Guaifenesin (Robitussin Sf) 200 mg PO Q4H PRN PRN Reason: Cough Guaifenesin/Dextromethorphan (Robitussin Dm) 15 ml PO Q4H PRN PRN Reason: Cough Hydralazine HCl (Apresoline) 10 mg SLOW IVP Q4H PRN PRN Reason: Systolic BP > 180 Iron/Minerals/Multivitamins (Theragran M) 1 tab PO DAILY [facility] Last Admin: 10/12/17 09:32 Dose: 1 tab Lisinopril (Zestril) 2.5 mg PO DAILY [facility] Last Admin: 10/12/17 09:31 Dose: 2.5 mg Loperamide HCl (Imodium) 2 mg PO PRN PRN PRN Reason: Diarrhea/Loose Stools Loratadine (Claritin) 10 mg PO DAILYPRN PRN PRN Reason: Sinus Symptoms Lorazepam (Ativan) 0.5 mg PO Q8H PRN PRN Reason: Anxiety/Agitation Magnesium Hydroxide (Milk Of Magnesium) 30 ml PO DAILYPRN PRN PRN Reason: Constipation Mineral Oil/White Petrolatum (Eucerin Cream) 0 gm TOP BIDPRN PRN PRN Reason: Dry Skin Ondansetron HCl (Zofran) 4 mg IVP Q6H PRN PRN Reason: Nausea/Vomiting Ondansetron HCl (Zofran Odt) 4 mg PO Q6H PRN PRN Reason: Nausea/Vomiting Pantoprazole Sodium (Protonix) 40 mg PO DAILY [facility] Last Admin: 10/11/17 09:29 Dose: 40 mg Phenol (Chloraseptic [place] 180 Ml Bot) 0 ml PO PRN PRN PRN Reason: Sore Throat Senna (Senokot) 2 tab PO HSPRN PRN PRN Reason: Constipation Sodium Chloride (Flush - Normal Saline) 10 ml IVF Q12HR [facility] Last Admin: 10/11/17 20:51 Dose: 10 ml Sodium Chloride (Flush - Normal Saline) 10 ml IVF PRN PRN PRN Reason: Saline Flush Last Admin: 10/11/17 09:31 Dose: 10 ml Sodium Chloride (Berkey Nasal [place] 0.65%) 0 ml EA NARE QIDPRN PRN PRN Reason: Nasal Congestion Tamsulosin HCl (Flomax) 0.4 mg PO DAILY [facility] Last Admin: 05/24/18 09:32 Dose: 0.4 mg Tramadol HCl (Ultram) 50 mg PO Q6H PRN PRN Reason: Pain
--- NOTE | 2017-10-12 11:54 | DIS ---
DATE OF ADMISSION: 10/08/2017 DATE OF DISCHARGE: 10/12/2017 PRIMARY CARE PHYSICIAN: Dr. Danielle Johnson. DISCHARGE DISPOSITION: alf unit. PRIMARY DISCHARGE DIAGNOSES: 1. Acute on chronic diastolic congestive heart failure exacerbation. 2. Anasarca due to problem 1. 3. Bilateral pleural effusion due to problem 1. 4. Demand ischemia of myocardium. 5. Bilateral upper lobe [facility] acquired pneumonia. 6. Hypokalemia. 7. Hypomagnesemia. 8. Acute encephalopathy, resolved. SECONDARY DISCHARGE DIAGNOSES: Chronic physical deconditioning, moderate mitral regurgitation, decub itus ulcer of sacral region as well as ankle stage 4, chronic obstructive pulmonary disease, benign e nlargement of prostate, normocytic normochromic anemia. PRIMARY PROCEDURE/OPERATION: None. RADIOLOGICAL INVESTIGATION: CT angiography showed bilateral pleural effusion and bilateral upper lob e infiltration. Echocardiography showed EF 60%-65%. Repeat chest x-ray showed improvement in infilt ration. SIGNIFICANT LABORATORY DATA: WBC 7.5, hemoglobin 9.3, platelets 240. Sodium 135, potassium 3.6, BUN 20, creatinine 0.55, calcium 8.0, BNP 1071. LFT normal. Urinalysis normal. DISCHARGE MEDICATIONS: Tylenol 500 mg p.o. q.6 hourly p.r.n., Brovana 15 mcg nebulization b.i.d., as pirin 81 mg daily, Pulmicort nebulization twice daily, Coreg 3.125 mg p.o. b.i.d., Omnicef 300 mg p.o . b.i.d. for 7 days, Benadryl 25 mg q.6 hours p.r.n., Lovenox 30 mg subcu daily, Pepcid 20 mg p.o. b. i.d., ferrous sulfate 325 mg p.o. daily, folic acid 1 mg p.o. daily, Lasix 40 mg p.o. daily, DuoNeb q .6 hourly p.r.n., lisinopril 2.5 mg p.o. daily, Ativan 0.5 mg q.8 hourly p.r.n., multivitamin 1 table t p.o. daily, Aldactone 25 mg p.o. daily, Flomax 0.4 mg p.o. daily, thiamine 100 mg p.o. daily, trama dol 50 mg p.o. q.6 hourly p.r.n. CONTRAINDICATIONS: None. CODE STATUS: FULL CODE. INPATIENT CONSULTANTS: Dr. Hendrix was following while in hospital. TEST RESULTS PENDING ON DISCHARGE: None. ALLERGIES: No known drug allergy. DISCHARGE PLAN: Post hospital, the patient is planned for discharge back to swing bed. HOSPITAL COURSE: A 72-year-old male with above-mentioned medical problem who was admitted by Dr. Deon ventura. Please see his H&P for further detail. This patient was recently admitted and discharged to swing bed. The patient was having increasing shortness of breath, cough. The patient was found w ith acute hypoxic respiratory failure. The patient was found with bilateral upper lobe pneumonia as well as bilateral pleural effusion. He had a significantly elevated BNP. The patient was found with anasarca and he was having acute on chronic diastolic heart failure along with pneumonia. The patie nt was admitted to telemetry floor. He was treated with empiric antibiotic therapy. Dr. Hendrix was consulted while in hospital. We also treated him with Lasix for diuresis. With IV antibiotic therapy and after diuretic therapy, we repeated chest x-ray which showed improveme nt in infiltration. While in hospital, the patient was getting wound care with wound care team. He had decubitus ulcer which was present on admission. This patient has significant physical deconditioning and that is why he required nutritional support as well as wound care and placement back to [facility]. At this point, the patient is stabilized medically. The patient is seen and examined at bedside tonomi sparks. Please see my progress note from today for further detail as long as patient has placement arrang ed by case finisher today, then this patient is medically stable for discharge back to swing bed versu s alf home. Necessary the patient's medication adjustment done today. Paper work for discharge done today. Disc harge medication reconciliation done today. Total time spent on discharge day 31 minutes.
--- NOTE | 2017-10-12 13:23 | PRG ---
DATE OF SERVICE: 10/12/2017 SUBJECTIVE: The patient is doing well, has no complaints. PHYSICAL EXAMINATION: VITAL SIGNS: Temperature is 97.7, pulse 82, respiratory rate 16, sat 94% on 2 liters, blood pressure 127/62. HEENT: Unremarkable. NECK: No JVD. LUNGS: Clear without wheezing or rhonchi. CARDIAC: S1 and S2 regular. ABDOMEN: Soft. EXTREMITIES: Severe muscle wasting. LABORATORY DATA AND IMAGING DATA: Sodium 135, potassium 3.6, chloride 100, CO2 30, BUN 20, creatinin e 0.5, glucose 98. BNP 1071. His x-ray demonstrates improvement in interstitial opacities consisten t with improvement of his pulmonary edema. ASSESSMENT: 1. Congestive heart failure - acute diastolic. 2. Status post acute hypoxic respiratory failure. 3. Very doubtful that he ever had pneumonia. RECOMMENDATIONS: He appears to be stable. I moved to either rehab or senior living. He should compl ete about 7 days of antibiotics. No further pulmonary recommendations. I will sign off. Please rec all if further assistance needed.
[2017-10-12] MEDS: Cefdinir 300 MG CAP PO SCH (13:47)
[2017-10-13] MEDS: Arformoterol 15 MCG/2 ML NEB NEB SCH (06:28)
[2017-10-13] MEDS: Budesonide 0.5 MG/2 ML NEB INH SCH (06:29)
[2017-10-13] MEDS: Lisinopril 2.5 MG TAB PO SCH (08:54)
[2017-10-13] MEDS: Enoxaparin Sodium 40 MG/0.4 ML SYRINGE SC SCH (08:54)
[2017-10-13] MEDS: Furosemide 40 MG/4 ML VIAL SLOW IVP SCH (08:54)
[2017-10-13] MEDS: Carvedilol 3.125 MG TAB PO SCH (08:55)
[2017-10-13] MEDS: Folic Acid 1 MG TAB PO SCH (08:55)
[2017-10-13] MEDS: Tamsulosin HCl 0.4 MG CAP PO SCH (08:55)
[2017-10-13] MEDS: Ferrous Sulfate 325 MG TAB PO SCH (08:55)
[2017-10-13] MEDS: Multivitamin W/ Minerals 1 TAB PO SCH (08:55)
[2017-10-13] MEDS: Docusate 100 MG CAP PO SCH (08:56)
[2017-10-13 11:47] VITALS: TEMP 98.5
[2017-10-13 11:49] VITALS: BP 137/75
--- NOTE | 2017-10-13 12:40 | DIS ---
DATE OF ADMISSION: 10/08/2017 DATE OF DISCHARGE: 10/13/2017 PRIMARY CARE PHYSICIAN: Danielle Johnson D.O. DISCHARGE DIAGNOSES: 1. Acute on chronic diastolic congestive heart failure. 2. Anasarca secondary to #1. 3. Bilateral pleural effusions secondary to congestive heart failure. 4. Demand ischemia of the heart. 5. Bilateral upper lobe healthcare-associated pneumonia. 6. Hypokalemia. 7. Hypomagnesemia. 8. Metabolic encephalopathy, acute, resolved. CONSULTATION: Pulmonary Critical Care, Dr. Adrian Hendrix, 10/08/2017. PROCEDURE: Echocardiogram, 10/10/2017, showed EF 60%-65%, [id number] MR, mild TR and mild elev ation in the RVSP. HISTORY AND PHYSICAL: Mr. Ruiz is a 72-year-old gentleman, who presented to the emergency department on the day of admission for shortness of breath. He was found to have acute on chronic CHF on evalu ation in the emergency department. We were called for admit. HOSPITAL COURSE: Please see Dr. Tripp's initial discharge summary dictated 10/12/2017. Patient wa s stable for discharge on 10/12/2017; however, I could not get approval for swing bed from Dr. Christie mata, so the patient was held overnight and discharge was held. Overnight, the patient did well. Labs remained normal, and he was stable for discharge to rehab af r approval was received from Dr. Johnson. DISCHARGE MEDICATIONS: Same. DISCHARGE CONDITION: Stable. DISPOSITION: Being discharged back to swing bed at [place]. DISCHARGE ACTIVITY: Per cardiopulmonary limits. DISCHARGE DIET: Heart healthy diabetic diet recommended.
[2017-10-13] MEDS: Cefdinir 300 MG CAP PO SCH (12:41)
== END 2017-10-13 12:51 | DRG 291 ==
LOC: ERS 09:48 → 2NO 14:11
PROVIDERS: ADMIT Internal Medicine; ATTEND Internal Medicine
DX: I11.0 Hypertensive heart disease with heart failure (principal); L89.154 Pressure ulcer of sacral region, stage 4; L89.504 Pressure ulcer of unspecified ankle, stage 4; J96.01 Acute respiratory failure with hypoxia; E43 Unspecified severe protein-calorie malnutrition; G93.41 Metabolic encephalopathy; J18.9 Pneumonia, unspecified organism; I24.8 Other forms of acute ischemic heart disease; I50.33 Acute on chronic diastolic (congestive) heart failure; Z79.899 Other long term (current) drug therapy; R62.7 Adult failure to thrive; Z87.891 Personal history of nicotine dependence; Z79.891 Long term (current) use of opiate analgesic; I45.10 Unspecified right bundle-branch block; E87.6 Hypokalemia; E83.42 Hypomagnesemia; I34.0 Nonrheumatic mitral (valve) insufficiency; N40.0 Benign prostatic hyperplasia without lower urinary tract symptoms; R53.81 Other malaise; Z68.22 Body mass index [BMI] 22.0-22.9, adult
CPT/HCPCS: 36415; 71045; 71275; 80048; 80202; 83735; 83880; 84100; 85025; 93306; 93798; 94640; A4216; G8978-GP-CM; G8979-GP-CL; G8987-GO-CL; G8988-GO-CJ; J0692; J1650; J1940; J3370; J3475; J7050; J7620; J7626

== ENCOUNTER 2020-07-02 07:05 | Outpatient (CLI) | payer MEDICARE, MEDICAID | END 2020-07-02 07:06 | disposition home or self-care (01) | LOC: BICULT 07:05 | PROVIDERS: ATTEND Family Medicine | DX: R19.00 Intra-abdominal and pelvic swelling, mass and lump, unspecified site (principal); I71.4 Abdominal aortic aneurysm, without rupture | CPT/HCPCS: 76706 ==

== ENCOUNTER 2020-08-24 09:15 | Inpatient (IN) | payer MEDICARE, MEDICAID ==
[2020-08-24 11:15] LABS: Hemoglobin 13.1 g/dL (13.5-17.5); Mean Corpuscular HGB CONC 33.2 g/dL (32.0-36.0); Mean Corpuscular Hemoglobin 32.8 pg (27.0-33.0); Mean Corpuscular Volume 98.7 fl (81.2-95.1); Mean Platelet Volume 10.7 fl (7.4-10.4); Platelet Count 223 10x3/uL (150-450); RBC Distribution Width 15.9 % (11.5-14.5); Red Blood Cell (RBC) Count 3.99 10x6/uL (4.32-5.72); White Blood Cell (WBC) Count 6.1 10x3/uL (3.5-10.5)
[2020-08-24 11:29] LABS: ALT (SGPT) 34 U/L (8-55); AST (SGOT) 55 U/L (5-34); Alkaline Phosphatase 62 U/L (40-110); Anion Gap 19 mmol/L (10-20); BUN (Urea Nitrogen) 6 mg/dL (8.4-25.7); Bilirubin, Direct 0.3 mg/dL (0.1-0.3); Bilirubin, Total 0.5 mg/dL (0.2-1.2); Calc. Creatinine Clearance 0 mL/min (70-130); Calcium 8.9 mg/dL (7.8-10.44); Carbon Dioxide 24 mmol/L (23-31); Chloride 102 mmol/L (98-107); Glucose 75 mg/dL (83-110); Potassium 3.4 mmol/L (3.5-5.1); Sodium 142 mmol/L (136-145)
[2020-08-24 11:33] LABS: INR-International Normal Ratio 0.9; Prothrombin Time 10.3 sec (9.5-12.1)
[2020-08-24 18:20] LABS: SARS-CoV-2 PCR by NAA Not Detected (NotDetected)
[2020-08-26] MEDS ORDERED: SUGAMMADEX SODIUM 500 MG/5 ML VIAL ONE (06:43)
[2020-08-26] MEDS ORDERED: Phenylephrine 10 MG/ML VIAL ONE (06:43)
[2020-08-26] MEDS ORDERED: Fentanyl 250 MCG/5 ML VIAL ONE (06:43)
[2020-08-26] MEDS ORDERED: Heparin 10,000 UNITS/ 10 ML VIAL ONE (06:57)
[2020-08-26] MEDS ORDERED: Heparin 5,000 UNITS/ML VIAL ONE (06:57)
[2020-08-26] MEDS ORDERED: PROPOFOL 200 MG/20 ML VIAL ONE (07:42)
[2020-08-26] MEDS ORDERED: Lidocaine 1% PF 5 ML VIAL ONE (07:42)
[2020-08-26] MEDS ORDERED: Esmolol 100 MG/10 ML VIAL ONE (07:42)
[2020-08-26] MEDS ORDERED: Dexamethasone 20 MG/5 ML VIAL ONE (07:42)
[2020-08-26] MEDS ORDERED: Glycopyrrolate 0.2 MG/ML 5 ML SYRINGE ONE (07:42)
[2020-08-26] MEDS ORDERED: Rocuronium Bromide 10 MG/ML (10ML VIAL) ONE (07:42)
[2020-08-26] MEDS ORDERED: Labetalol HCl 100 MG/20 ML VIAL ONE (07:42)
[2020-08-26] MEDS ORDERED: Ketorolac Tromethamine 30 MG/ML VIAL ONE (07:42)
[2020-08-26] MEDS ORDERED: Ondansetron PF 4 MG/2 ML Vial ONE (07:42)
[2020-08-26] MEDS ORDERED: Protamine Sulfate 50 MG/5 ML VIAL ONE (09:22)
[2020-08-26] MEDS ORDERED: Fentanyl 100 MCG/2 ML VIAL SLOW IVP PRN ×2 (10:11)
[2020-08-26] MEDS ORDERED: Acetaminophen 325 MG TAB PO PRN (10:11)
[2020-08-26] MEDS ORDERED: HYDROcodone/Acetaminophen 5/325 mg Tablet PO PRN ×2 (10:11)
[2020-08-26] MEDS ORDERED: hydrALAZINE 20 MG/ML VIAL SLOW IVP PRN (10:11)
[2020-08-26] MEDS ORDERED: Ondansetron HCl/PF 4 MG/2 ML Vial IVP PRN (10:14)
[2020-08-26] MEDS ORDERED: Promethazine HCl 25 MG/ML VIAL SLOW IVP PRN (10:14)
[2020-08-26] MEDS ORDERED: Promethazine HCl 25 MG/ML VIAL IM PRN (10:14)
[2020-08-26 11:36] VITALS: BMI 19.1
[2020-08-26] MEDS ORDERED: Lorazepam 2 MG/ML VIAL SLOW IVP PRN (12:43)
[2020-08-26] MEDS: Sodium Chloride 0.9% 1,000 ML IV SCH ×2 (17:34→21:15)
[2020-08-26] MEDS: BEER 1 CAN PO SCH (17:35)
[2020-08-26] MEDS: Ondansetron PF 4 MG/2 ML Vial IVP PRN (18:43)
[2020-08-26] MEDS: Mometasone 100 MCG/Formoterol 5 MCG 120 PUFF INHALER INH SCH (18:54)
[2020-08-26] MEDS ORDERED: Tamsulosin HCl 0.4 MG CAP PO SCH (21:00)
[2020-08-26] MEDS ORDERED: Atorvastatin Calcium 10 MG TAB PO SCH (21:00)
[2020-08-27 03:40] LABS: Hemoglobin 8.6 g/dL (14.0-18.0); Mean Corpuscular HGB CONC 34.5 g/dL (32.0-36.0); Mean Corpuscular Hemoglobin 35.5 pg (27.0-31.0); RBC Distribution Width 14.2 % (11.5-14.5); Red Blood Cell (RBC) Count 2.41 mill/uL (4.70-6.10); White Blood Cell (WBC) Count 10.2 thou/uL (4.8-10.8)
[2020-08-27 03:56] LABS: Anion Gap 13 mmol/L (10-20); BUN (Urea Nitrogen) 10 mg/dL (8.4-25.7); Calc. Creatinine Clearance 97 mL/min (70-130); Calcium 6.9 mg/dL (7.8-10.44); Carbon Dioxide 24 mmol/L (23-31); Chloride 101 mmol/L (98-107); Glucose 120 mg/dL (83-110); Potassium 3.7 mmol/L (3.5-5.1); Sodium 134 mmol/L (136-145)
[2020-08-27 03:57] LABS: #Monocytes 0.9 thou/uL (0.11-0.59); #Neutrophils 8.4 thou/uL (1.40-6.50); %Basophils 0.1 % (0.0-1.0); %Eosinophils 0.1 % (0.0-10.0); %Lymphocytes 9.3 % (21.0-51.0); %Monocytes 8.5 % (0.0-10.0); %Neutrophils 82.1 % (42.0-75.0); Platelet Count 117 thou/uL (130-400)
[2020-08-27] MEDS: Ondansetron PF 4 MG/2 ML Vial IVP PRN (06:38)
[2020-08-27] MEDS ORDERED: traMADol HCl 50 MG TAB PO PRN ×2 (06:49)
[2020-08-27] MEDS: Mometasone 100 MCG/Formoterol 5 MCG 120 PUFF INHALER INH SCH (08:16)
[2020-08-27 08:23] VITALS: TEMP 98.6
[2020-08-27] MEDS: Sodium Chloride 0.9% 1,000 ML IV SCH (08:25)
[2020-08-27] MEDS: BEER 1 CAN PO SCH (08:25)
[2020-08-27] MEDS ORDERED: Aspirin 325 MG TAB PO SCH (09:00)
[2020-08-27] MEDS ORDERED: Famotidine 20 MG TAB PO SCH (09:00)
[2020-08-31 15:53] LABS: Actual Bicarbonate (HCO3a) 24.2 mEq/L (22-28); Analyzer IN Cardio OR; Base Excess (BEa) 0.9 mEq/L (-2.0 to +3.0); CO2 Tension 33.9 mmHg (35.0-45.0); Calcium, Ionized (arterial) 1.01 mmol/L (1.12-1.30); Carboxyhemoglobin (COHb) 2.1 gm% (0.0-3.0); Hemoglobin (Hb) 10.8 g/dL (14.0-18.0); O2 Tension (PaO2), arterial 260.3 mmHg (> 70.0); Potassium - ABG Lab 2.81 mmol/L (3.70-5.30); pH, Arterial 7.47 (7.35-7.45)
[2020-08-31 15:54] LABS: Puncture Site Arterial Line
== END 2020-08-27 08:12 | disposition home or self-care (01) | DRG 269 ==
LOC: SURG A 08-26 05:35 → CCU 08-26 11:20
PROVIDERS: ADMIT Thoracic Surgery (Cardiothoracic Vascular Surgery); ATTEND Thoracic Surgery (Cardiothoracic Vascular Surgery)
PROC: 04V03DZ Restriction of Abdominal Aorta with Intraluminal Device, Percutaneous Approach (ICD-10-PCS; principal; 2020-08-26)
DX: I71.4 Abdominal aortic aneurysm, without rupture (principal); J43.9 Emphysema, unspecified; F10.10 Alcohol abuse, uncomplicated; F17.210 Nicotine dependence, cigarettes, uncomplicated; E78.00 Pure hypercholesterolemia, unspecified; I50.9 Heart failure, unspecified; D51.0 Vitamin B12 deficiency anemia due to intrinsic factor deficiency; Z20.822 Contact with and (suspected) exposure to COVID-19; Z88.8 Allergy status to other drugs, medicaments and biological substances; Z79.82 Long term (current) use of aspirin
CPT/HCPCS: 36415; 36416; 71046; 76000; 80048; 80076; 82805; 85025; 85027; 85610; 86850; 86900; 86901; 87635; 93005; 93010; C1726; C1894; J0690; J1100; J1642; J1644; J1885; J2370; J2405; J2704; J2720; J3010; U0003; U0005

== ENCOUNTER 2020-12-23 12:49 | Emergency (ER) | payer MEDICARE, MEDICAID ==
[2020-12-23] MEDS ORDERED: Dextrose 50% Abboject 50 ML SYRINGE SLOW IVP SCH (13:45)
[2020-12-23] MEDS ORDERED: Multivitamins, Adult 10 ML, Thiamine HCl 100 MG, Folic Acid 1 MG in Dextrose 5 %-0.45 %... IV SCH (13:45)
[2020-12-23 14:31] LABS: #Eosinphils 0.1 thou/uL (0.0-0.7); #Lymphocytes 0.7 thou/uL (1.20-3.40); #Monocytes 0.2 thou/uL (0.11-0.59); #Neutrophils 4.9 thou/uL (1.40-6.50); %Basophils 0.7 % (0.0-1.0); %Eosinophils 1.1 % (0.0-10.0); %Lymphocytes 12.2 % (21.0-51.0); %Monocytes 3.9 % (0.0-10.0); %Neutrophils 82.1 % (42.0-75.0); Hemoglobin 11.6 g/dL (14.0-18.0); Mean Corpuscular HGB CONC 32.2 g/dL (32.0-36.0); Mean Corpuscular Hemoglobin 33.8 pg (27.0-31.0); Mean Platelet Volume 7.1 fL (7.4-10.4); Platelet Count 252 thou/uL (130-400); RBC Distribution Width 13.2 % (11.5-14.5); Red Blood Cell (RBC) Count 3.44 mill/uL (4.70-6.10)
[2020-12-23 14:45] LABS: Acetaminophen Less than 6.0 mcg/mL (10.0-30.0); Alcohol 232 mg/dL (Less than 10); CK (CPK) 47 U/L (30-200); Salicylate Less than 8.0 mg/dL (15.0-30.0)
[2020-12-23 14:46] LABS: ALT (SGPT) 41 U/L (8-55); AST (SGOT) 61 U/L (5-34); Alkaline Phosphatase 76 U/L (40-110); Anion Gap 25 mmol/L (10-20); BUN (Urea Nitrogen) 8 mg/dL (8.4-25.7); Bilirubin, Total 0.5 mg/dL (0.2-1.2); Calc. Creatinine Clearance 0 mL/min (70-130); Calcium 7.8 mg/dL (7.8-10.44); Carbon Dioxide 18 mmol/L (23-31); Chloride 99 mmol/L (98-107); Globulin 2.9 g/dL (2.4-3.5); Glucose 186 mg/dL (83-110); Potassium 3.4 mmol/L (3.5-5.1); Protein, Total 5.9 g/dL (5.8-8.1); Sodium 139 mmol/L (136-145)
[2020-12-23 15:19] LABS: MDiff Complete? YES; Macrocytosis SLIGHT = 6-15 cells (100X) (0-5/hpf); Platelet Morphology Comment Appears Adequate; Target Cells SLIGHT = 2-5 cells (100X) (0-1/hpf)
[2020-12-23 18:38] LABS: Bacteria/HPF None Seen HPF (None Seen); Bilirubin Negative (Negative); Blood, Urine Negative (Negative); Clarity Clear (Clear); Glucose, Urine (Dipstick) >=1000 mg/dL (Negative); Ketone, Urine 100 mg/dL (Negative); Leukocyte Negative Leu/uL (Negative); Nitrite Negative (Negative); Protein, Urine (Dipstick) 30 mg/dL (Neg-Trace); RBC/HPF None Seen HPF (0-3); Specific Gravity, Urine 1.015 (1.002-1.036); Squamous Epithelial 0-3 HPF (0-3); WBC/HPF 0-3 HPF (0-3)
== END 2020-12-23 19:00 | disposition home or self-care (01) ==
LOC: ERS 12:49
DX: L89.152 Pressure ulcer of sacral region, stage 2 (principal); R53.1 Weakness; I10 Essential (primary) hypertension; Z87.891 Personal history of nicotine dependence
CPT/HCPCS: 36415; 36416; 70450; 71045; 80053; 80307; 81003; 81015; 82140; 82550; 84443; 84484; 85025; 93005; 96365; 96366; 96375; J3411; J7042